=== PATIENT | male | born 1975 | race Caucasian/White ===

== ENCOUNTER 2024-07-24 20:08 | Observation (INO) | payer OTHER, SELFPAY ==
[2024-07-24] VITALS (10 sets, daily range): BP systolic 85–121; BP diastolic 51–75; PULSE 86–105; RESP 20; TEMP 36.7; O2SAT 92–97; BMI 55.4
--- NOTE | 2024-07-24 19:59 | ECG_ITS ---
APPROVED REPORT Exam: Resting ECG HR:96 bpm ECG Measurements Heart Rate 96 AXES NV 137 P 254 QRSd 81 QRS -24 QT 341 T 61 QTc 394 Conclusion JUNCTIONAL RHYTHM BORDERLINE LEFT AXIS DEVIATION [QRS AXIS < -20] LOW QRS VOLTAGE IN PRECORDIAL LEADS [QRS DEFLECTION < 1.0 mV IN CHEST LEADS] No STEMI Electronically signed by : HARMEET CABRERA, 07/25/2024 23:38:04
--- NOTE | 2024-07-24 20:12 | CT_ITS ---
PROCEDURE INFORMATION: Exam: CTA Chest With Contrast Exam date and time: 07/24/2024 10:10 PM Age: 49 years old Clinical indication: Pain; Chest pressure; Additional info: Shock, unknown origin, L shoulder/back pain, n/v TECHNIQUE: Imaging protocol: Computed tomographic angiography of the chest with contrast. Exam focused on the arteries. 3D rendering (Not supervised by radiologist): MIP and/or 3D reconstructed images were created by the technologist. Radiation optimization: All CT scans at this facility use at least one of these dose optimization techniques: automated exposure control; mA and/or kV adjustment per patient size (includes targeted exams where dose is matched to clinical indication); or iterative reconstruction. Contrast material: ISOVUE; Contrast volume: 80 ml; Contrast route: INTRAVENOUS (IV); COMPARISON: CT ABDOMEN PELVIS W CON 07/24/2024 10:10 PM FINDINGS: Pulmonary arteries: No pulmonary embolus. Aorta: Unremarkable. No aortic aneurysm. No aortic dissection. Lungs: Right upper lobe subsegmental atelectasis. Mild hypoventilatory changes. Pleural spaces: Unremarkable. No pneumothorax. No pleural effusion. Heart: Unremarkable. No cardiomegaly. No pericardial effusion. Coronary arteries: Mild coronary artery calcifications. Lymph nodes: Unremarkable. No enlarged lymph nodes. Bones/joints: Unremarkable. No acute fracture. Soft tissues: Unremarkable. IMPRESSION: No pulmonary embolus.
--- NOTE | 2024-07-24 20:12 | CT_ITS ---
PROCEDURE INFORMATION: Exam: CT Abdomen And Pelvis With Contrast Exam date and time: 07/24/2024 10:10 PM Age: 49 years old Clinical indication: Abdominal pain; Additional info: Shock, unknown origin, L shoulder/back pain, n/v TECHNIQUE: Imaging protocol: Computed tomography of the abdomen and pelvis with contrast. 3D rendering (Not supervised by radiologist): MIP and/or 3D reconstructed images were created by the technologist. Radiation optimization: All CT scans at this facility use at least one of these dose optimization techniques: automated exposure control; mA and/or kV adjustment per patient size (includes targeted exams where dose is matched to clinical indication); or iterative reconstruction. Contrast material: ISOVUE; Contrast volume: 80 ml; Contrast route: IV; COMPARISON: CT ANGIO CHEST PE PROTOCOL 07/24/2024 10:10 PM FINDINGS: Liver: Normal. No mass. Gallbladder and biliary ducts: Normal. No calcified stones. No ductal dilation. Pancreas: Normal. No ductal dilation. Spleen: Normal. No splenomegaly. Adrenal glands: Normal. No mass. Kidneys and ureters: Right lower pole simple cortical renal cyst. Left-sided nonobstructive calcified calyceal renal stone. No hydronephrosis. Stomach and bowel: Unremarkable. No obstruction. No mucosal thickening. Appendix: No evidence of appendicitis. Intraperitoneal space: Unremarkable. No free air. No significant fluid collection. Vasculature: Mild atherosclerotic changes of the aorta and its major branches. Lymph nodes: Unremarkable. No enlarged lymph nodes. Urinary bladder: Unremarkable as visualized. Reproductive: Unremarkable as visualized. Bones/joints: Grade 1 retrolisthesis of L5 on S1. Mild multilevel spondylosis. Vacuum phenomenon at L5-S1. Soft tissues: Unremarkable. IMPRESSION: No acute abdominopelvic abnormality. COMMENTS: Consistent with the [employer]'s Incidental Findings Committee white paper (J Am Parker Radiol 2018): Any incidental renal lesion less than 1 cm or classified as too small to characterize, or any incidental cystic renal lesion characterized as simple-appearing, is likely benign. No follow-up imaging is recommended for these lesions per consensus recommendations based on imaging criteria.
[2024-07-24] MEDS: KETOROLAC 30MG/ML VIAL 15 MG IV (20:28)
[2024-07-24] MEDS: SODIUM CHLORIDE 0.9% 10ML VIAL 8 ML IV (20:28)
[2024-07-24] MEDS: ONDANSETRON 4MG/2ML VIAL 4 MG IV (20:28)
[2024-07-24] MEDS: FAMOTIDINE 20MG/2ML VIAL 20 MG IV (20:28)
[2024-07-24] MEDS: ACETAMINOPHEN 1,000MG/100ML VIAL 1000 MG IV (20:28)
[2024-07-24 21:36] LABS: VBG Base Excess -1.6 mmol/L (-2.4-2.3); VBG HCO3 22.6 mmol/L (23-30); VBG Oxygen Saturation 86.7 % (50-70); VBG PCO2 34.1 mmol/L (35-51); VBG PH 7.44 mmol/L (7.31-7.41); VBG Total CO2 23.6 mmol/L (23-27)
[2024-07-24 21:42] LABS: Basophils # 0.1 K/mm3 (0-0.2); Basophils % 0.5 % (0.1-2.0); Eosinophils # 0.5 Kmm3 (0.0-0.4); Eosinophils % 3.9 % (0.1-12.0); Hemoglobin 15.2 g/dL (14.1-18.0); Immature Granulocytes # 0.06 10^3uL; Immature Granulocytes % 0.4 %; Lymphocytes # 2.4 K/mm3 (0.7-4.5); Lymphocytes % 17.5 % (10-50); Mean Corpuscular HGB Conc 35.3 g/dL (31.8-35.4); Mean Corpuscular Hemoglobin 30.9 pg (27.0-31.2); Mean Corpuscular Volume 87.4 fl (80-94); Mean Platelet Volume 10.2 fl (7.4-10.4); Monocytes % 7.1 % (1.7-9.3); Neutrophils # 9.7 K/mm3 (1.8-7.8); Neutrophils % 70.6 % (37.0-80.0); Nucleated Red Blood Cells # 0 10^3/uL; Nucleated Red Blood Cells % 0 %; Platelet Count 268 K/mm3 (142-424); Red Blood Count 4.92 M/mm3 (4.60-6.20); Red Cell Distribution Width 13.4 % (11.5-17.5); Red Cell Distribution Width-SD 42.9 fL; White Blood Count 13.8 K/mm3 (4.8-10.8)
[2024-07-24 21:52] LABS: Albumin Level 4.7 g/dl (3.5-5.0); Chloride 103 mmol/L (98-107); Sodium 136 mmol/L (136-145)
[2024-07-24 21:54] LABS: Activated Partial Thrombo Time 25.4 seconds (22.8-30.6); INR 0.99 (0.9-1.1); Prothrombin Time 11.1 seconds (10.1-12.5)
[2024-07-24 21:55] LABS: Alanine Aminotransferase 46 U/L (12-78); Albumin/Globulin Ratio 1.8 (1.1-1.8); Alkaline Phosphatase 110 U/L (38-126); Aspartate Amino Transferase 35 U/L (17-59); Bilirubin,Total 0.9 mg/dl (0.2-1.3); Blood Urea Nitrogen 28 mg/dl (9-20); Calcium 9.6 mg/dl (8.4-10.2); Carbon Dioxide 24 mmol/L (22.0-30.0); Creatine Kinase 71 U/L (55-170); Creatinine Clearance Estimated 36 mL/min (50-200); Estimated Glomerular Filt Rate 24 ml/min (>60); GFR (African American) 29 ML/MIN (>60); Globulin 2.6 g/dL (1.3-3.2); Glucose 111 mg/dl (74-100); Total Protein,Serum 7.3 g/dl (6.3-8.2)
[2024-07-24] MEDS: LACTATED RINGERS 1000ML 1,000 ML 999 ML IV ×2 (21:55→21:56)
[2024-07-24 21:56] LABS: Lactic Acid 1.9 mmol/L (0.7-2.1); Lipase 81 U/L (23-300)
[2024-07-24 22:01] LABS: C-Reactive Protein 5.6 mg/L (0-4)
[2024-07-24 22:07] LABS: NT Pro Brain Natriuretic Pep. < 20.0 pg/mL (0-125)
[2024-07-24] MEDS: IOPAMIDOL-370 (76%);100ML BOTTLE 80 ML IV (22:10)
[2024-07-24] MEDS: SODIUM CHLORIDE 0.9% 10ML SYR (RAD ONLY) 10 ML IV (22:10)
[2024-07-24] MEDS: 0.9 % SODIUM CHLORIDE 50 ML VIAL IV (22:10)
[2024-07-24 22:18] LABS: Troponin I < 0.01 ng/ml (0.00-0.034)
[2024-07-24 22:28] LABS: Thyroid Stimulating Hormone 1.34 uIU/mL (0.465-4.68)
[2024-07-24 22:29] LABS: Coronavirus 19, PCR Not Detected (NotDetected); Influenza A, PCR Not Detected (NotDetected); Influenza B, PCR Not Detected (NotDetected)
--- NOTE | 2024-07-24 22:30 | ED_ITS ---
Discharge Plan Disposition Patient Disposition: Admitted Condition: Good Clinical Impressions Clinical Impression: JANIE (acute kidney injury), Left shoulder pain, Nausea, Sepsis, Acute UTI Discharge ED Provider: Kaylene Jade General Adult HPI General Chief complaint: Nausea/Vomiting/Diarrhea Stated complaint: nausea Time Seen by Provider: 07/24/24 20:10 Mode of Arrival: EMS Source of Information: Patient and EMS Description of Symptoms (Recalled from ER Triage Doc. by RN): pt to ED with c/o N/V, dizziness, and left shoulder pain that started this morning. History of Present Illness HPI narrative: This patient is a 49-year-old male who has a history of obesity and type 2 diabetes on Ozempic presenting to the emergency department for evaluation with concern for nausea, vomiting, dizziness, and left shoulder pain that started this morning. He notes he was feeling fine yesterday when he went to bed, however this morning anytime he tries to stand up he feels like is going to pass out. He notes he is having pain between his shoulder blades, mostly on the left side. No localizable abdominal pain. He has nausea, vomiting this nonbloody nonbilious. He has had no changes in bowel movements or urinary symptoms. No history of anything like this in the past. No recent falls or traumatic injuries. Related Data Allergies Allergy/AdvReac Type Severity Reaction Status Date / Time No Known Allergies Allergy Verified 07/24/24 20:16 [facility] Disclaimer: The information contained in this section may have been updated after the patient was seen, as this information can be updated by other users. Social History Smoking Status: Never smoker alcohol intake: never current occupational status: employed Travel in the last 8 weeks?: None ROS Obtained: Yes All systems reviewed & no additional complaints except as documented Physical Exam General General appearance: alert, in no apparent distress and obese Head Head exam: atraumatic and normocephalic Eye Eye exam: Present normal appearance, PERRL and EOMI ENT ENT exam: Present normal exam, normal oropharynx, mucous membranes moist and normal external ear exam Neck Neck exam: Present normal inspection, full ROM and trachea midline; Absent tenderness Chest Chest inspection: Present normal inspection and symmetric chest wall rise; Absent tenderness Respiratory Respiratory exam: Present normal lung sounds bilaterally; Absent respiratory distress, wheezes, stridor or accessory muscle use Cardiovascular Cardiovascular exam: Present regular rate and normal rhythm Abdominal Exam Abdominal exam: Present soft; Absent distention, tenderness or guarding Extremities Exam Extremities exam: Present normal inspection, full ROM and normal capillary refill; Absent tenderness or edema Back Exam Back exam: Present normal inspection and full ROM; Absent tenderness Neurological Exam Neurological exam: Present alert, oriented X3, CN II-XII intact and normal gait; Absent motor sensory deficit Psychiatric Psychiatric exam: Present normal affect and normal mood Skin Skin exam: Present warm and dry Medical Decision Making Medical Records Medical records reviewed: Yes I reviewed the patient's medical records. Screening: Per USPSTF and CDC recommendations, given the prevalence of disease in our region, it is our hospital?s policy to screen for HIV and viral Hepatitis for all patients aged 18 and over and those with ongoing risk factors. Naldo Inquiry Pt receiving controlled substance: No Vital Signs: 07/24/24 20:08 07/24/24 20:42 07/24/24 21:02 Temperature 98.1 F Temperature Source Oral Pulse Rate 105 H 99 H Pulse Rate [Left Radial] 105 H Pulse Rate [Orthostatic Lying Radial] Pulse Rate [Orthostatic Sitting Radial] Pulse Rate [Orthostatic Standing Radial] Respiratory Rate 20 20 20 Blood Pressure 87/52 L 85/51 L Blood Pressure [Orthostatic Lying Right Arm] Blood Pressure [Orthostatic Sitting Right Arm] Blood Pressure [Orthostatic Standing Right Arm] Blood Pressure [Right Arm] 103/51 L Blood Pressure Mean Blood Pressure Mean [Right Arm] 68 Blood Pressure Source Automatic Cuff Automatic Cuff Blood Pressure Source [Right Arm] Automatic Cuff Blood Pressure Position Sitting Sitting Blood Pressure Position [Right Arm] Sitting 02 Sat by Pulse Oximetry 95 96 92 L Oxygen Delivery Method Room Air Room Air Room Air 07/24/24 21:53 07/24/24 22:00 07/24/24 22:30 Temperature Temperature Source Pulse Rate 87 88 88 Pulse Rate [Left Radial] Pulse Rate [Orthostatic Lying Radial] Pulse Rate [Orthostatic Sitting Radial] Pulse Rate [Orthostatic Standing Radial] Respiratory Rate Blood Pressure 100/62 L 99/65 L 114/67 Blood Pressure [Orthostatic Lying Right Arm] Blood Pressure [Orthostatic Sitting Right Arm] Blood Pressure [Orthostatic Standing Right Arm] Blood Pressure [Right Arm] Blood Pressure Mean 72 Blood Pressure Mean [Right Arm] Blood Pressure Source Blood Pressure Source [Right Arm] Blood Pressure Position Blood Pressure Position [Right Arm] 02 Sat by Pulse Oximetry 96 97 97 Oxygen Delivery Method 07/24/24 23:00 07/24/24 23:30 07/24/24 23:50 Temperature Temperature Source Pulse Rate 89 86 Pulse Rate [Left Radial] Pulse Rate [Orthostatic Lying Radial] 87 Pulse Rate [Orthostatic Sitting Radial] 100 H Pulse Rate [Orthostatic Standing Radial] 97 H Respiratory Rate Blood Pressure 104/67 L 89/61 L Blood Pressure [Orthostatic Lying Right Arm] 117/69 Blood Pressure [Orthostatic Sitting Right Arm] 121/72 Blood Pressure [Orthostatic Standing Right Arm] 107/75 L Blood Pressure [Right Arm] Blood Pressure Mean 77 Blood Pressure Mean [Right Arm] Blood Pressure Source Blood Pressure Source [Right Arm] Blood Pressure Position Blood Pressure Position [Right Arm] 02 Sat by Pulse Oximetry 95 96 Oxygen Delivery Method Lab Data Lab results reviewed: Yes I reviewed the patient's lab results. Lab Results 07/24/24 20:12: VBG pH 7.44 H, VBG pCO2 34.1 L, VBG pO2 48.0 H, VBG HCO3 22.6 L, VBG Total CO2 23.6, VBG O2 Saturation 86.7 H, VBG Base Excess -1.6, VBG Lactic Acid 3.0 H 07/24/24 21:33: WBC 13.8 H, RBC 4.92, Hgb 15.2, Hct 43.0, MCV 87.4, MCH 30.9, MCHC 35.3, RDW 13.4, Plt Count 268, MPV 10.2, Neut % (Auto) 70.6, Lymph % (Auto) 17.5, [place] % (Auto) 7.1, Eos % (Auto) 3.9, Baso % (Auto) 0.5, Neut # (Auto) 9.7 H, Lymph # (Auto) 2.4, [place] # (Auto) 1.0, Eos # (Auto) 0.5 H, Baso # (Auto) 0.1, PT 11.1, INR 0.99, APTT 25.4, Sodium 136, Potassium 4.0, Chloride 103, Carbon Dioxide 24, Anion Gap 13.0, BUN 28 H, Creatinine 2.80 H, Estimated Creat Clear 36, Estimated GFR 24 L, Est GFR ( Amer) 29 L, Glucose 111 H, Lactate 1.9, Calcium 9.6, Total Bilirubin 0.9, AST 35, ALT 46, Alkaline Phosphatase 110, Total Creatine Kinase 71, Troponin I < 0.01, C-Reactive Protein 5.6 H, NT-Pro-B Natriuret Pep < 20.0, Total Protein 7.3, Albumin 4.7, Globulin 2.6, Albumin/Globulin Ratio 1.8, Lipase 81, TSH 1.34, Thyroxine (T4) 7.0 07/24/24 22:23: SARS-CoV-2 (PCR) Not detected, Influenza A Untype (PCR) Not detected, Influenza Type B (PCR) Not detected 07/24/24 22:35: Urine Color Yellow, Urine Appearance Clear, Urine pH 6.0, Ur Specific Easley >= 1.030, Urine Protein 1+ A, Urine Glucose (UA) Negative, Urine Ketones Trace, Urine Blood Negative, Urine Nitrate Negative, Urine Bilirubin Negative, Urine Urobilinogen 0.2, Ur Leukocyte Esterase Negative, Urine RBC 5-10, Urine WBC 20-50, Ur Squamous Epith Cells 3-5, Amorphous Sediment 1+, Urine Bacteria 1+, Urine Mucus 3+ 07/24/24 23:01: Troponin I 0.02 07/24/24 21:33 07/24/24 21:33 Orders (Tests/Meds): ED MEDICATIONS Generic Name Dose Route Start Last Admin Trade Name Freq PRN Reason Stop Dose Admin Sodium Chloride 1,000 mls @ 100 mls/hr 07/25/24 01:00 07/25/24 01:04 Sod Chlor 0.9% 1000ml Bag IV 08/24/24 00:59 100 mls/hr .Q10H MARYSOL Administration Ondansetron HCl 4 mg 07/25/24 00:51 07/25/24 01:04 Ondansetron 4mg/2ml Vial IV 08/24/24 00:50 4 mg Q8HP PRN Administration Nausea Sodium Chloride 8 ml 07/24/24 20:20 07/24/24 20:28 Sodium Chloride 0.9% 10ml Vial IV 08/23/24 20:19 8 ml NEEDED PRN Administration dilute pepcid Sodium Chloride 10 ml 07/25/24 00:51 Sodium Chloride 0.9% 10ml Flush Syringe IV 08/24/24 00:50 NEEDED PRN Maintain IV Site Discontinued Medications Generic Name Dose Route Start Last Admin Trade Name Freq PRN Reason Stop Dose Admin Acetaminophen 1,000 mg 07/24/24 20:20 07/24/24 20:28 Acetaminophen 1,000mg/100ml Vial IV 07/24/24 20:21 1,000 mg ONCE ONE Administration Famotidine 20 mg 07/24/24 20:20 07/24/24 20:28 Famotidine 20mg/2ml Vial IV 07/24/24 20:21 20 mg ONCE ONE Administration Lactated Ringer's 1,000 mls @ 999 mls/hr 07/24/24 20:55 07/24/24 21:55 Lactated Ringer's 1000 Ml Bag IV 07/24/24 21:55 999 mls/hr .Q1H1M ONE Administration Lactated Ringer's 1,000 mls @ 999 mls/hr 07/24/24 20:56 07/24/24 21:56 Lactated Ringer's 1000 Ml Bag IV 07/24/24 21:56 999 mls/hr .Q1H1M ONE Administration Iopamidol 80 ml 07/24/24 22:09 07/24/24 22:10 Iopamidol-370 (76%);100ml Bottle IV 07/24/24 22:10 80 ml ONCE ONE Administration Ketorolac Tromethamine 15 mg 07/24/24 20:20 07/24/24 20:28 Ketorolac 30mg/Ml Vial IV 07/24/24 20:21 15 mg ONCE ONE Administration Ondansetron HCl 4 mg 07/24/24 20:20 07/24/24 20:28 Ondansetron 4mg/2ml Vial IV 07/24/24 20:21 4 mg ONCE ONE Administration Sodium Chloride 50 ml 07/24/24 22:09 07/24/24 22:10 0.9 % Sodium Chloride 50 Ml Vial IV 07/24/24 22:10 50 ml ONCE ONE Administration Sodium Chloride 10 ml 07/24/24 22:09 07/24/24 22:10 Sodium Chloride 0.9% 10ml Syr (Rad Only) IV 07/24/24 22:10 10 ml ONCE ONE Administration ORDERS Category Date Time Status CT abdomen pelvis w con Stat Cat Scan 07/24/24 20:[address] angio chest PE protocol Stat Cat Scan 07/24/24 20:12 Completed Activated Partial Thrombo Time Stat Lab 07/24/24 21:33 Completed BNP [NT Pro Brain Natriuretic Pep.] Stat Lab 07/24/24 21:33 Completed C-Reactive Protein Stat Lab 07/24/24 21:33 Completed Complete Blood Count Auto Diff Stat Lab 07/24/24 21:33 Completed Comprehensive Metabolic Panel Stat Lab 07/24/24 21:33 Completed Creatine Kinase Stat Lab 07/24/24 21:33 Completed Lactic Acid Stat Lab 07/24/24 21:33 Completed Lipase Stat Lab 07/24/24 21:33 Completed Prothrombin Time INR Stat Lab 07/24/24 21:33 Completed Rapid PCR Covid and Flu A/B Stat Lab 07/24/24 22:23 Completed T4 (Thyroxine) Stat Lab 07/24/24 21:33 Completed TSH [Thyroid Stimulating Hormone] Stat Lab 07/24/24 21:33 Completed Trop I [Troponin I] Stat Lab 07/24/24 21:33 Completed Troponin I Q3H Lab 07/24/24 23:01 Completed Troponin I Q3H Lab 07/25/24 02:15 Ordered Urinalysis and Microscopic Stat Lab 07/24/24 22:35 Completed Blood Culture Stat Micro 07/24/24 21:33 Received Urine Culture Stat Micro 07/24/24 22:35 Received VBG [Venous Blood Gas] Stat RT 07/24/24 20:12 Completed ECG Data Tracing #1: I reviewed this ECG and interpreted as documented below: Normal sinus rhythm with a ventricular rate of 96 bpm. Borderline left axis deviation. No acute ST changes concerning for STEMI. ECG initial impression date: 07/24/24 ECG initial impression time: 20:04 Medical Decision Narrative: In summary, this patient is a 49-year-old male presenting to the Emergency Department for evaluation of orthostatic presyncope, lightheadedness, nausea, scapular pain. Differential diagnoses considered include but are not limited to PE, orthostatic hypotension, dehydration, JANIE, pyelonephritis, ureterolithiasis, aortic pathology among others. Ruling out the most morbid conditions drove assessment. It should be noted patient's history includes obesity, type 2 diabetes, anxiety/depression which may or may not be at goal therapy. This complicates all aspects of care by increasing patient's risk for morbidity. On initial assessment, patient ill-appearing with hypotension and tachycardia. Maps in the low 50s. Given this, IV fluid resuscitation was initiated immediately with good response. He was given a 2 L bolus which is the equivalent of sepsis bolus based on his ideal body weight. He was not given full sepsis bolus given obesity, as I felt it would be detrimental to the patient. Workup included broad lab evaluation to evaluate for infectious, metabolic, cardiac derangements as well as CTA PE protocol and CT abdomen pelvis with IV contrast. I independently interpreted CT scan prior to the radiologist read and noted no PE or obvious aortic pathology, no obvious obstructive uropathy, no obvious intra-abdominal infection. Please see their read for final interpretation. Labs were obtained that demonstrated mild leukocytosis. Patient has an JANIE with a creatinine of 2.8 with no known history of kidney disease, telling her that his creatinine has been previously normal. He is still making urine. Urine does look infected. On reassessment, patient had great improvement after IV fluids with improved perfusion. he is feeling better and is now normotensive, but is still feeling bad. Given significant JANIE in the setting of UTI, I feel he would benefit from admission for IV fluids and antibiotics. I am concerned for sepsis. I ordered IV Rocephin. Blood cultures were already sent and were pending. I had an interactive discussion with the hospitalist who admitted the patient in stable/improved condition Critical Care Critical Care Time Critical Care Time: Yes Attestation: On 07/24/24, the high probability of a clinically significant, sudden or life threatening deterioration of the following system(s) required my full and direct attention, intervention and personal management. The time I documented below is in addition to time spent performing reported procedures but includes the following listed in this critical care notation. Total Time Total Critical Care Time: 45
[2024-07-24 22:43] LABS: Microscopic, Urine URINE MICROSCOPIC (MICROSCOPIC)
[2024-07-24 22:46] LABS: Appearance,Urine CLEAR (Clear); Blood, Urine Negative (Negative); Color,Urine YELLOW (Yellow); Glucose,Urine (UA) Negative (Negative); Ketones,Urine TRACE (Negative); Leukocyte Esterase,Urine Negative (Negative); Nitrate,Urine Negative (Negative); Protein,Urine 1+ (Negative); Specific Gravity, Urine >= 1.030 (1.005-1.030); Urobilinogen,Urine 0.2 EU/dl (0.2)
--- NOTE | 2024-07-24 23:02 | PC.NURSE ---
2nd de león collected and sent to the lab at this time
[2024-07-24 23:10] LABS: Bilirubin,Urine Negative (Negative)
[2024-07-24 23:29] LABS: Amorphous Sediment,Urine 1+ /lpf; Bacteria,Urine 1+ /lpf; Mucus,Urine 3+ /lpf; WBC,Urine 20-50 #/hpf (0-3)
[2024-07-24 23:46] LABS: Troponin I 0.02 ng/ml (0.00-0.034)
[2024-07-25] VITALS (21 sets, daily range): BP systolic 101–141; BP diastolic 30–80; PULSE 68–87; RESP 16–24; TEMP 36.4–37.1; O2SAT 91–99; BMI 55.8
--- NOTE | 2024-07-25 00:32 | PC.NURSE ---
pt ambulatory with slow steady gait to room 1.
[2024-07-25 00:45] LABS: Reflex Lactic Add Lactic Reflex
[2024-07-25] MEDS: 0.9 % SODIUM CHLORIDE 1000ML 1,000 ML 100 ML IV (01:04)
[2024-07-25] MEDS: ONDANSETRON 4MG/2ML VIAL 4 MG IV ×2 (01:04→06:43)
[2024-07-25 01:15] LABS: Lactic Acid Follow Up (RFLX 1) 1.7 mmol/L (0.7-2.1)
--- NOTE | 2024-07-25 01:22 | PC.NURSE ---
provider contacted regarding need for pain medicine.
[2024-07-25] MEDS: CEFTRIAXONE SODIUM 2 GM in 0.9 % SODIUM CHLORIDE 100 ML IV (02:04)
[2024-07-25] MEDS: MORPHINE 2MG/ML SYRINGE 2 MG IV (02:21)
--- NOTE | 2024-07-25 04:28 | P.HP_ITS ---
<Statement entered by Tulio Altamirano MD - 07/25/24 19:30> Rounded on patient after nurse practitioner. Personally examined and interviewed patient. Agree with exam findings and care plan as documented. History of Present Illness *Admission Date: 07/24/24 *Reason for visit:: Dizziness and nausea *History of present illness: This is a 49-year-old male with past medical history of diabetes and obesity on Ozempic who presents emergency department today with complaints of nausea vomiting and dizziness. He reports being on Ozempic for 3 months. States he has had a decrease in oral intake over the last 3 months and states that he woke up today acutely nauseated. States that he has been on the same dosage and has been doing okay with it. Developed sudden onset nausea today after brushing his teeth. Has vomited twice. Also reports pain behind the left shoulder blade. Denies any other symptoms. Denies any fever, cough, congestion. Denies any diarrhea or dysuria. Emergency department workup notable for hypotension with systolic blood pressure in the 80s with improvement after IV fluids. After IV fluid administration Emergency Department he did feel some better but then had a subsequent drop in blood pressure back into the 80s. Lab work is notable for an JANIE with a creatinine of 2.8, leukocytosis with a white count of 13, urinalysis with 20-50 white blood cells, bacteria. He was treated with Rocephin, and IV fluids admitted to the hospital service [facility] Disclaimer: The information contained in this section may have been updated after the patient was seen, as this information can be updated by other users. Social History (Updated 07/25/24 @ 01:20 by Kaylene Jade DO) Smoking Status: Never smoker alcohol intake: never current occupational status: employed Travel in the last 8 weeks?: None Have you lived/traveled outside [place] in past 30 days?: No Contact w/someone who lives/traveled outside US past 30 days?: No Exposure to someone with infectious disease in past 14 days?: No Do you have a fever (greater than 100.4 F or 38 C)?: No Have you tested positive for COVID-19?: No Exposed to someone with COVID-19 in past 14 days?: No Do you have a sore throat?: No Do you have a cough?: No Do you have any weakness?: No Do you have any diarrhea?: No Are you experiencing any unusual bleeding?: No Do you have any muscle aches/pain?: No Do you have any abdominal pain?: No Are you experiencing loss of taste or smell?: No Review of Systems Review of Systems Review of systems:: pertinent systems reviewed and negative unless documented below Review of systems (narrative): Negative except for HPI Meds Home Medications and Allergies New Prescriptions to Start Prescriptions: Allergies Allergy/AdvReac Type Severity Reaction Status Date / Time No Known Allergies Allergy Verified 07/24/24 20:16 Exam Data for Last 24 hours Vital signs and Labs for Last 24 Hours: Temp Pulse Resp BP Pulse Ox O2 Del Method 98.1 F 87 20 127/67 96 Room Air 07/25/24 01:07/25/24 01:07/25/24 01:07/25/24 01:07/25/24 01:07/25/24 01:19 Laboratory Results - last 24 hr 07/24/24 20:12: VBG pH 7.44 H, VBG pCO2 34.1 L, VBG pO2 48.0 H, VBG HCO3 22.6 L, VBG Total CO2 23.6, VBG O2 Saturation 86.7 H, VBG Base Excess -1.6, VBG Lactic Acid 3.0 H 07/24/24 21:33: WBC 13.8 H, RBC 4.92, Hgb 15.2, Hct 43.0, MCV 87.4, MCH 30.9, MCHC 35.3, RDW 13.4, Plt Count 268, MPV 10.2, Neut % (Auto) 70.6, Lymph % (Auto) 17.5, [place] % (Auto) 7.1, Eos % (Auto) 3.9, Baso % (Auto) 0.5, Neut # (Auto) 9.7 H, Lymph # (Auto) 2.4, [place] # (Auto) 1.0, Eos # (Auto) 0.5 H, Baso # (Auto) 0.1, PT 11.1, INR 0.99, APTT 25.4, Sodium 136, Potassium 4.0, Chloride 103, Carbon Dioxide 24, Anion Gap 13.0, BUN 28 H, Creatinine 2.80 H, Estimated Creat Clear 36, Estimated GFR 24 L, Est GFR ( Amer) 29 L, Glucose 111 H, Lactate 1.9, Calcium 9.6, Total Bilirubin 0.9, AST 35, ALT 46, Alkaline Phosphatase 110, Total Creatine Kinase 71, Troponin I < 0.01, C-Reactive Protein 5.6 H, NT-Pro-B Natriuret Pep < 20.0, Total Protein 7.3, Albumin 4.7, Globulin 2.6, Albumin/Globulin Ratio 1.8, Lipase 81, TSH 1.34, Thyroxine (T4) 7.0 07/24/24 22:23: SARS-CoV-2 (PCR) Not detected, Influenza A Untype (PCR) Not detected, Influenza Type B (PCR) Not detected 07/24/24 22:35: Urine Color Yellow, Urine Appearance Clear, Urine pH 6.0, Ur Specific [place] >= 1.030, Urine Protein 1+ A, Urine Glucose (UA) Negative, Urine Ketones Trace, Urine Blood Negative, Urine Nitrate Negative, Urine Bilirubin Negative, Urine Urobilinogen 0.2, Ur Leukocyte Esterase Negative, Urine RBC 5-10, Urine WBC 20-50, Ur Squamous Epith Cells 3-5, Amorphous Sediment 1+, Urine Bacteria 1+, Urine Mucus 3+ 07/24/24 23:01: Troponin I 0.02 07/25/24 00:54: Lactate 1.7 I & O for Last 24 hours: Intake & Output 07/22/24 07/23/24 07/24/24 07/25/24 23:59 23:59 23:59 23:59 Weight 190.509 kg Constitutional Constitutional: no acute distress *Routine HEENT Exam Head: Present normocephalic Eye: Present EOMI and PERRL ENT: Present mucous membranes moist *Routine Neck Exam Neck: Present supple; Absent lymphadenopathy *Routine Respiratory Exam Respiratory: Present CTA bilaterally *Routine Cardiovascular Exam Cardiovascular: Present RRR *Routine Abdominal Exam Abdominal: Present soft and normoactive bowel sounds; Absent tenderness *Routine Rectal Exam Rectal:: deferred *Routine Genitalia Exam Genitalia:: deferred *Routine Extremities Exam Extremities: Absent cyanosis, clubbing or edema *Routine Skin Exam Skin: Present warm; Absent rash *Routine Neurological Exam Neurological: Present alert and oriented X3 Assessment and Plan *Assessment and plan (1) Acute UTI: Status: Acute Category: Medical Code(s): N39.0 - Urinary tract infection, site not specified (2) Sepsis: Status: Acute Category: Medical Code(s): A41.9 - Sepsis, unspecified organism (3) Nausea: Status: Acute Category: Medical Code(s): R11.0 - Nausea (4) JANIE (acute kidney injury): Status: Acute Category: Medical Code(s): N17.9 - Acute kidney failure, unspecified (5) Morbid obesity with BMI of 50.0-59.9, adult: Status: Acute Category: Medical Code(s): E66.01 - Morbid (severe) obesity due to excess calories; Z68.43 - Body mass index [BMI] 50.0-59.9, adult (6) SETH (obstructive sleep apnea): Status: Acute Category: Medical Code(s): G47.33 - Obstructive sleep apnea (adult) (pediatric) Plan Admit to medicine # Sepsis Meets criteria for leukocytosis, hypotension and lactic acidosis. Positive urinalysis on exam Blood pressure improved after IV fluid administration Continue Rocephin for positive UA Follow-up urine culture and blood culture #Acute cystitis Urinalysis with white blood cells and bacteria Continue Rocephin Follow-up urine culture #JANIE Likely prerenal in the setting of nausea and poor p.o. intake Creatinine of 2.8 without available baseline Continue maintenance IV fluids #Nausea Continue antiemetics #Morbid obesity Complicates all aspects of care #SETH BiPAP for bedtime and naps
--- NOTE | 2024-07-25 04:35 | EXP.SEPSISRE ---
[facility] Tissue Perfusion Eval Sepsis Re-Evaluation Performed: Yes Date Performed: 07/25/24 Time Performed: 04:35
[2024-07-25 04:48] LABS: Basophils # 0.1 K/mm3 (0-0.2); Basophils % 0.9 % (0.1-2.0); Eosinophils # 0.5 Kmm3 (0.0-0.4); Eosinophils % 5.5 % (0.1-12.0); Hematocrit 40.9 % (42.0-52.0); Hemoglobin 14.4 g/dL (14.1-18.0); Immature Granulocytes # 0.03 10^3uL; Immature Granulocytes % 0.3 %; Lymphocytes # 2.8 K/mm3 (0.7-4.5); Lymphocytes % 28.1 % (10-50); Mean Corpuscular HGB Conc 35.2 g/dL (31.8-35.4); Mean Corpuscular Hemoglobin 31.1 pg (27.0-31.2); Mean Corpuscular Volume 88.3 fl (80-94); Monocytes # 0.8 K/mm3 (0.1-1.0); Monocytes % 8.3 % (1.7-9.3); Neutrophils # 5.6 K/mm3 (1.8-7.8); Neutrophils % 56.9 % (37.0-80.0); Nucleated Red Blood Cells # 0 10^3/uL; Nucleated Red Blood Cells % 0 %; Platelet Count 240 K/mm3 (142-424); Red Blood Count 4.63 M/mm3 (4.60-6.20); Red Cell Distribution Width 13.3 % (11.5-17.5); Red Cell Distribution Width-SD 43.5 fL; White Blood Count 9.8 K/mm3 (4.8-10.8)
[2024-07-25 04:50] LABS: Chloride 103 mmol/L (98-107); Potassium 3.6 mmoL/L (3.5-5.1); Sodium 136 mmol/L (136-145)
[2024-07-25 04:53] LABS: Anion Gap 12.6 mEq/L (5-15); Blood Urea Nitrogen 31 mg/dl (9-20); Carbon Dioxide 24 mmol/L (22.0-30.0); Creatinine Clearance Estimated 34 mL/min (50-200); Estimated Glomerular Filt Rate 23 ml/min (>60); GFR (African American) 28 ML/MIN (>60); Glucose 114 mg/dl (74-100); Magnesium 1.7 mg/dl (1.6-2.3)
[2024-07-25 05:06] LABS: Troponin I < 0.01 ng/ml (0.00-0.034)
[2024-07-25] MEDS: 0.9 % SODIUM CHLORIDE 1000ML 1,000 ML 500 ML IV (06:33)
--- NOTE | 2024-07-25 06:36 | PC.NURSE ---
patient c/o nausea, provider notified.
--- NOTE | 2024-07-25 10:54 | PC.NURSE ---
arrived by w/c from ED
[2024-07-25] MEDS: ACETAMINOPHEN 325MG TAB 650 MG PO (11:47)
[2024-07-25 12:34] LABS: Chloride 103 mmol/L (98-107); Potassium 3.9 mmoL/L (3.5-5.1); Sodium 137 mmol/L (136-145)
[2024-07-25 12:37] LABS: Anion Gap 10.9 mEq/L (5-15); Blood Urea Nitrogen 25 mg/dl (9-20); Carbon Dioxide 27 mmol/L (22.0-30.0); Creatinine Clearance Estimated 42 mL/min (50-200); Estimated Glomerular Filt Rate 29 ml/min (>60); GFR (African American) 35 ML/MIN (>60)
[2024-07-25 12:38] LABS: Calcium 9.3 mg/dl (8.4-10.2); Glucose 116 mg/dl (74-100)
[2024-07-25] MEDS: PANTOPRAZOLE 40MG TABLET 40 MG PO (20:32)
[2024-07-25] MEDS: buPROPion HCl SR 150MG TAB 150 MG PO (20:32)
[2024-07-25] MEDS: TRAZODONE 50MG TABLET 150 MG PO (20:32)
[2024-07-25] MEDS: ATORVASTATIN 20MG TABLET 20 MG PO (20:32)
[2024-07-25] MEDS: APAP/HYDROCODONE 325MG/7.5MG TAB 1 TAB PO (21:00)
--- NOTE | 2024-07-25 21:48 | P.PN_ITS ---
Subjective *Date: 07/25/24 *Time: 21:48 Interval history: Patient feeling better this morning. Showing improvement to antibiotics. Blood pressure remained stable. No nausea or vomiting. Culture still pending. Medical Exam Vital signs and Labs for Last 24 Hours: Vital Signs Temp Pulse Pulse Pulse Pulse Pulse Resp 07/25/24 21:00 07/25/24 19:50 97.6 F 73 18 07/25/24 19:00 07/25/24 17:00 07/25/24 14:42 07/25/24 13:00 07/25/24 11:00 07/25/24 10:42 98.7 F 74 20 07/25/24 10:01 79 18 07/25/24 09:30 75 17 07/25/24 09:01 74 18 07/25/24 08:30 74 19 07/25/24 08:01 74 16 07/25/24 07:30 72 24 07/25/24 07:01 84 16 07/25/24 06:30 74 17 07/25/24 06:00 73 21 07/25/24 05:30 68 22 07/25/24 05:00 70 24 07/25/24 04:30 71 07/25/24 04:00 71 07/25/24 03:30 73 07/25/24 02:00 97.6 F 75 16 07/25/24 01:19 98.1 F 87 20 07/25/24 01:10 07/25/24 00:56 07/25/24 00:00 87 07/24/24 23:50 87 100 H 97 H 07/24/24 23:46 96 H 07/24/24 23:30 86 07/24/24 23:00 89 07/24/24 22:30 88 07/24/24 22:00 88 07/24/24 21:53 87 BP BP BP BP BP Pulse Ox O2 Del Method 07/25/24 21:00 Room Air 07/25/24 19:50 107/55 L 95 Room Air 07/25/24 19:00 Room Air 07/25/24 17:00 Room Air 07/25/24 14:42 Room Air 07/25/24 13:00 Room Air 07/25/24 11:00 Room Air 07/25/24 10:42 141/30 H Room Air 07/25/24 10:01 101/56 L 99 07/25/24 09:30 130/75 92 L 07/25/24 09:01 129/76 93 L 07/25/24 08:30 124/78 94 L Room Air 07/25/24 08:01 105/52 L 97 Room Air 07/25/24 07:30 118/74 99 Room Air 07/25/24 07:01 107/51 L 96 Room Air 07/25/24 06:30 121/61 94 L 07/25/24 06:00 113/69 96 07/25/24 05:30 110/67 93 L Room Air 07/25/24 05:00 121/74 93 L Room Air 07/25/24 04:30 109/72 L 91 L 07/25/24 04:00 118/69 93 L 07/25/24 03:30 110/64 93 L 07/25/24 02:00 141/80 H 97 Room Air 07/25/24 01:19 127/67 96 Room Air 07/25/24 01:10 07/25/24 00:56 Room Air 07/25/24 00:00 127/67 96 07/24/24 23:50 117/69 121/72 107/75 L 07/24/24 23:46 121/72 97 07/24/24 23:30 89/61 L 96 07/24/24 23:00 104/67 L 95 07/24/24 22:30 114/67 97 07/24/24 22:00 99/65 L 97 07/24/24 21:53 100/62 L 96 FiO2 07/25/24 21:00 07/25/24 19:50 07/25/24 19:00 07/25/24 17:00 07/25/24 14:42 07/25/24 13:00 07/25/24 11:00 07/25/24 10:42 07/25/24 10:01 07/25/24 09:30 07/25/24 09:01 07/25/24 08:30 07/25/24 08:01 07/25/24 07:30 07/25/24 07:01 07/25/24 06:30 07/25/24 06:00 07/25/24 05:30 07/25/24 05:00 07/25/24 04:30 07/25/24 04:00 07/25/24 03:30 07/25/24 02:00 07/25/24 01:19 07/25/24 01:10 21 07/25/24 00:56 07/25/24 00:00 07/24/24 23:50 07/24/24 23:46 07/24/24 23:30 07/24/24 23:00 07/24/24 22:30 07/24/24 22:00 07/24/24 21:53 Intake and Output 07/25/24 07/25/24 07/25/24 07:59 15:59 23:59 Intake Total 160 / 620 460 / 620 Output Total 800 / 1300 500 / 1300 Balance -800 / -680 -340 / -680 460 / -680 Intake: Intake, Oral Amount 160 / 620 460 / 620 Output: Output, Urine Amount 800 / 1300 500 / 1300 Other: Weight 192.068 kg Patient Weight 07/25/24 23:59 Weight 192.068 kg Laboratory Results - last 24 hr 07/24/24 21:33: WBC 13.8 H, RBC 4.92, Hgb 15.2, Hct 43.0, MCV 87.4, MCH 30.9, MCHC 35.3, RDW 13.4, Plt Count 268, MPV 10.2, Neut % (Auto) 70.6, Lymph % (Auto) 17.5, [place] % (Auto) 7.1, Eos % (Auto) 3.9, Baso % (Auto) 0.5, Neut # (Auto) 9.7 H, Lymph # (Auto) 2.4, [place] # (Auto) 1.0, Eos # (Auto) 0.5 H, Baso # (Auto) 0.1, PT 11.1, INR 0.99, APTT 25.4, Sodium 136, Potassium 4.0, Chloride 103, Carbon Dioxide 24, Anion Gap 13.0, BUN 28 H, Creatinine 2.80 H, Estimated Creat Clear 36, Estimated GFR 24 L, Est GFR ( Amer) 29 L, Glucose 111 H, Lactate 1.9, Calcium 9.6, Total Bilirubin 0.9, AST 35, ALT 46, Alkaline Phosphatase 110, Total Creatine Kinase 71, Troponin I < 0.01, C-Reactive Protein 5.6 H, NT-Pro-B Natriuret Pep < 20.0, Total Protein 7.3, Albumin 4.7, Globulin 2.6, Albumin/Globulin Ratio 1.8, Lipase 81, TSH 1.34, Thyroxine (T4) 7.0 07/24/24 22:23: SARS-CoV-2 (PCR) Not detected, Influenza A Untype (PCR) Not detected, Influenza Type B (PCR) Not detected 07/24/24 22:35: Urine Color Yellow, Urine Appearance Clear, Urine pH 6.0, Ur Specific [place] >= 1.030, Urine Protein 1+ A, Urine Glucose (UA) Negative, Urine Ketones Trace, Urine Blood Negative, Urine Nitrate Negative, Urine Bilirubin Negative, Urine Urobilinogen 0.2, Ur Leukocyte Esterase Negative, Urine RBC 5-10, Urine WBC 20-50, Ur Squamous Epith Cells 3-5, Amorphous Sediment 1+, Urine Bacteria 1+, Urine Mucus 3+ 07/24/24 23:01: Troponin I 0.02 07/25/24 00:54: Lactate 1.7 07/25/24 04:39: WBC 9.8 D, RBC 4.63, Hgb 14.4, Hct 40.9 L, MCV 88.3, MCH 31.1, MCHC 35.2, RDW 13.3, Plt Count 240, MPV 10.0, Neut % (Auto) 56.9, Lymph % (Auto) 28.1, [place] % (Auto) 8.3, Eos % (Auto) 5.5, Baso % (Auto) 0.9, Neut # (Auto) 5.6, Lymph # (Auto) 2.8, [place] # (Auto) 0.8, Eos # (Auto) 0.5 H, Baso # (Auto) 0.1, Sodium 136, Potassium 3.6, Chloride 103, Carbon Dioxide 24, Anion Gap 12.6, BUN 31 H, Creatinine 2.90 H, Estimated Creat Clear 34, Estimated GFR 23 L, Est GFR ( Amer) 28 L, Glucose 114 H, Calcium 9.0, Magnesium 1.7, Troponin I < 0.01 07/25/24 12:16: Sodium 137, Potassium 3.9, Chloride 103, Carbon Dioxide 27, Anion Gap 10.9, BUN 25 H, Creatinine 2.40 H, Estimated Creat Clear 42, Estimated GFR 29 L, Est GFR ( Amer) 35 L D, Glucose 116 H, Calcium 9.3 I & O for Labs for Last 24 Hours: Intake & Output 07/22/24 07/23/24 07/24/24 07/25/24 23:59 23:59 23:59 23:59 Intake Total 620 / 620 Output Total 1300 / 1300 Balance -680 / -680 Weight 190.509 kg 192.068 kg Microbiology Reports for the Last 24 Hours: Microbiology 07/24/24 21:33 Blood Blood Culture - Preliminary NO GROWTH AFTER 24 HOURS 07/24/24 21:33 Blood Blood Culture - Preliminary NO GROWTH AFTER 24 HOURS Constitutional: Present no acute distress, morbidly obese and cooperative Head: Present atraumatic and normocephalic Respiratory: Present CTA bilaterally; Absent rhonchi or wheezes Cardiac: Present Reg Rate and Rhythm GI: Present soft; Absent distention or tenderness Neuro: Present Grossly Intact, alert, awake and oriented x 3 Assessment and Plan *Assessment and plan (1) Acute UTI: Status: Acute Category: Medical Code(s): N39.0 - Urinary tract infection, site not specified (2) Sepsis: Status: Acute Category: Medical Code(s): A41.9 - Sepsis, unspecified organism (3) Nausea: Status: Acute Category: Medical Code(s): R11.0 - Nausea (4) JANIE (acute kidney injury): Status: Acute Category: Medical Code(s): N17.9 - Acute kidney failure, unspecified (5) Morbid obesity with BMI of 50.0-59.9, adult: Status: Acute Category: Medical Code(s): E66.01 - Morbid (severe) obesity due to excess calories; Z68.43 - Body mass index [BMI] 50.0-59.9, adult (6) SETH (obstructive sleep apnea): Status: Acute Category: Medical Code(s): G47.33 - Obstructive sleep apnea (adult) (pediatric) Plan 49-year-old male with morbid obesity who presented with criteria for sepsis. Found to have UTI. Culture still pending. Continues to necessitate inpatient management. Problems addressed as follows: # Sepsis # Urinary tract infection Meets criteria with leukocytosis, hypotension and lactic acidosis. Positive urinalysis on exam Blood pressure improved after IV fluid administration Continue Rocephin IV daily Urine and blood cultures pending. White count improved to 9.8, hemoglobin 14.4. Kidney function showing slight improvement with BUN 25, creatinine 2.4. Repeat CBC, CMP, magnesium ordered for the #JANIE Likely prerenal in the setting of nausea and poor p.o. intake Creatinine of 2.8 without available baseline on presentation, improved to 2.4 on morning labs Tolerating p.o. intake, discontinue IV fluids. #Morbid obesity: Complicates all aspects of care #SETH: BiPAP for bedtime and naps Full code
[2024-07-26] VITALS: BP 122/76; PULSE 68; RESP 18; TEMP 36.4; O2SAT 93
[2024-07-26] MEDS: CEFTRIAXONE SODIUM 2 GM in 0.9 % SODIUM CHLORIDE 100 ML IV (02:55)
--- NOTE | 2024-07-26 03:25 | PC.NURSE ---
Patient is alert and oriented x4. He was observed to have eyes closed, respirations even and unlabored, and no apparent distress throughout the night. Patient's personal CPAP machine has been in place during resting periods; he has been tolerating room air, with oxygen saturations > 90%, while awake. [place] was given per MAY for a complaint of severe lower back pain. Other scheduled medications were administered as appropriately per MAY. Auscultation of his heart, lungs, and bowels were within normal findings. Normal saline infusion was discontinued during the previous shift. Patient ambulates independently in his room/to the bathroom without any difficulties. At this time, the patient is resting in bed without any further complaints. No acute changes noted thus far. Call light within reach.
[2024-07-26 04:00] VITALS: BP 104/67; PULSE 61; RESP 17; TEMP 36.1; BMI 55.8
[2024-07-26 07:27] LABS: Basophils # 0.1 K/mm3 (0-0.2); Basophils % 0.9 % (0.1-2.0); Eosinophils # 0.5 Kmm3 (0.0-0.4); Eosinophils % 6.1 % (0.1-12.0); Hemoglobin 14.4 g/dL (14.1-18.0); Immature Granulocytes # 0.02 10^3uL; Immature Granulocytes % 0.2 %; Lymphocytes # 1.8 K/mm3 (0.7-4.5); Lymphocytes % 22.8 % (10-50); Mean Corpuscular HGB Conc 35.1 g/dL (31.8-35.4); Mean Corpuscular Hemoglobin 30.9 pg (27.0-31.2); Mean Platelet Volume 10.2 fl (7.4-10.4); Monocytes # 0.6 K/mm3 (0.1-1.0); Monocytes % 7.7 % (1.7-9.3); Neutrophils % 62.3 % (37.0-80.0); Nucleated Red Blood Cells # 0 10^3/uL; Nucleated Red Blood Cells % 0 %; Platelet Count 236 K/mm3 (142-424); Red Blood Count 4.66 M/mm3 (4.60-6.20); Red Cell Distribution Width 13.4 % (11.5-17.5); Red Cell Distribution Width-SD 42.9 fL; White Blood Count 8.1 K/mm3 (4.8-10.8)
[2024-07-26 07:39] LABS: Alanine Aminotransferase 40 U/L (12-78); Albumin Level 4.2 g/dl (3.5-5.0); Albumin/Globulin Ratio 1.7 (1.1-1.8); Alkaline Phosphatase 109 U/L (38-126); Anion Gap 11.6 mEq/L (5-15); Aspartate Amino Transferase 33 U/L (17-59); Bilirubin,Total 0.7 mg/dl (0.2-1.3); Blood Urea Nitrogen 16 mg/dl (9-20); Calcium 9.1 mg/dl (8.4-10.2); Carbon Dioxide 24 mmol/L (22.0-30.0); Chloride 104 mmol/L (98-107); Creatinine Clearance Estimated 81 mL/min (50-200); Estimated Glomerular Filt Rate 64 ml/min (>60); GFR (African American) 78 ML/MIN (>60); Globulin 2.5 g/dL (1.3-3.2); Glucose 112 mg/dl (74-100); Potassium 3.6 mmoL/L (3.5-5.1); Sodium 136 mmol/L (136-145); Total Protein,Serum 6.7 g/dl (6.3-8.2)
[2024-07-26 08:00] VITALS: BP 116/60; PULSE 64; RESP 17; TEMP 36.3; O2SAT 93
--- NOTE | 2024-07-26 08:13 | P.DS_ITS ---
General Admission date:: 07/25/24 Discharge date: 07/26/24 HPI HPI HPI: This is a 49-year-old male with past medical history of diabetes and obesity on Ozempic who presents emergency department today with complaints of nausea vomiting and dizziness. He reports being on Ozempic for 3 months. States he has had a decrease in oral intake over the last 3 months and states that he woke up today acutely nauseated. States that he has been on the same dosage and has been doing okay with it. Developed sudden onset nausea today after brushing his teeth. Has vomited twice. Also reports pain behind the left shoulder blade. Denies any other symptoms. Denies any fever, cough, congestion. Denies any diarrhea or dysuria. Emergency department workup notable for hypotension with systolic blood pressure in the 80s with improvement after IV fluids. After IV fluid administration Emergency Department he did feel some better but then had a subsequent drop in blood pressure back into the 80s. Lab work is notable for an JANIE with a creatinine of 2.8, leukocytosis with a white count of 13, urinalysis with 20-50 white blood cells, bacteria. He was treated with Rocephin, and IV fluids admitted to the hospital service Hospital Course Hospital Course Hospital Course: 49-year-old male with morbid obesity who presented with criteria for sepsis. Found to have UTI. Culture still being. Transition to oral Levaquin to complete antibiotic course. Kidney function normal and symptoms defervesced. Overall doing well with resolution of sepsis symptoms. Stable to discharge home to complete antibiotics as an outpatient. Problems addressed as follows: Culture still pending. Continues to necessitate inpatient management. Problems addressed as follows: # Sepsis # Urinary tract infection # JANIE Meets criteria with leukocytosis, hypotension and lactic acidosis. Positive urinalysis on exam. Blood pressure improved after IV fluid administration. Initiated on Rocephin IV daily. Urine and blood cultures obtained. Blood cultures remain negative at discharge. Urine culture still pending. White count improved to 8.1 by day of discharge, hemoglobin 14.4. Kidney function normalized from significant kidney injury with creatinine 2.8 on presentation, to creatinine 1.2 by day of discharge and BUN of 16. Consistent with prerenal kidney injury. Tolerating p.o. intake. Transitioned antibiotics to levofloxacin to complete 5 more days of 500 mg daily for total 7 days of antibiotics. #Morbid obesity: Complicates all aspects of care #SETH: BiPAP for bedtime and naps Exam Data for Last 24 hours Vital signs and Labs for Last 24 Hours: Temp Pulse Resp BP Pulse Ox O2 Del Method FiO2 97.0 F L 61 17 104/67 L 93 L CPAP 21 07/26/24 04:00 07/26/24 04:00 07/26/24 04:00 07/26/24 04:00 07/26/24 00:00 07/26/24 06:35 07/25/24 01:10 Laboratory Results - last 24 hr 07/25/24 12:16: Sodium 137, Potassium 3.9, Chloride 103, Carbon Dioxide 27, Anion Gap 10.9, BUN 25 H, Creatinine 2.40 H, Estimated Creat Clear 42, Estimated GFR 29 L, Est GFR ( Amer) 35 L D, Glucose 116 H, Calcium 9.3 07/26/24 07:05: WBC 8.1, RBC 4.66, Hgb 14.4, Hct 41.0 L, MCV 88.0, MCH 30.9, MCHC 35.1, RDW 13.4, Plt Count 236, MPV 10.2, Neut % (Auto) 62.3, Lymph % (Auto) 22.8, [place] % (Auto) 7.7, Eos % (Auto) 6.1, Baso % (Auto) 0.9, Neut # (Auto) 5.0, Lymph # (Auto) 1.8, [place] # (Auto) 0.6, Eos # (Auto) 0.5 H, Baso # (Auto) 0.1, Sodium 136, Potassium 3.6, Chloride 104, Carbon Dioxide 24, Anion Gap 11.6, BUN 16 D, Creatinine 1.20 D, Estimated Creat Clear 81, Estimated GFR 64, Est GFR ( Amer) 78 D, Glucose 112 H, Calcium 9.1, Magnesium 2.0 D, Total Bilirubin 0.7, AST 33, ALT 40, Alkaline Phosphatase 109, Total Protein 6.7, Albumin 4.2 D, Globulin 2.5, Albumin/Globulin Ratio 1.7 I & O for Last 24 hours: Intake & Output 07/23/24 07/24/24 07/25/24 07/26/24 23:59 23:59 23:59 23:59 Intake Total 620 / 1970 1350 / 1350 Output Total 1300 / 1300 0 / 0 Balance -680 / 670 1350 / 1350 Weight 190.509 kg 192.068 kg 191.098 kg Microbiology Reports for the Last 24 Hours: Microbiology 07/24/24 22:35 Urine,Clean Catch Urine Culture - Final Multiple organisms, suggests contamination. 07/24/24 21:33 Blood Blood Culture - Preliminary NO GROWTH AFTER 24 HOURS 07/24/24 21:33 Blood Blood Culture - Preliminary NO GROWTH AFTER 24 HOURS Constitutional Constitutional: no acute distress, morbidly obese and cooperative *Routine HEENT Exam Head: Present normocephalic Eye: Present EOMI and PERRL ENT: Present mucous membranes moist *Routine Neck Exam Neck: Present supple; Absent lymphadenopathy *Routine Respiratory Exam Respiratory: Present CTA bilaterally *Routine Cardiovascular Exam Cardiovascular: Present RRR *Routine Abdominal Exam Abdominal: Present soft and normoactive bowel sounds; Absent tenderness *Routine Extremities Exam Extremities: Absent cyanosis, clubbing or edema *Routine Skin Exam Skin: Present warm; Absent rash *Routine Neurological Exam Neurological: Present alert, oriented X3 and moving all extremities; Absent altered mental status Results Data Completed and Pending Labs on day of discharge: Labs from last 24 hours 07/26/24 07/25/24 07:05 12:16 WBC 8.1 RBC 4.66 Hgb 14.4 Hct 41.0 L MCV 88.0 MCH 30.9 MCHC 35.1 RDW 13.4 Plt Count 236 MPV 10.2 Neut % (Auto) 62.3 Lymph % (Auto) 22.8 [place] % (Auto) 7.7 Eos % (Auto) 6.1 Baso % (Auto) 0.9 Neut # (Auto) 5.0 Lymph # (Auto) 1.8 [place] # (Auto) 0.6 Eos # (Auto) 0.5 H Baso # (Auto) 0.1 Sodium 136 137 Potassium 3.6 3.9 Chloride 104 103 Carbon Dioxide 24 27 Anion Gap 11.6 10.9 BUN 16 D 25 H Creatinine 1.20 D 2.40 H Estimated Creat Clear 81 42 Estimated GFR 64 29 L Est GFR ( Amer) 78 D 35 L D Glucose 112 H 116 H Calcium 9.1 9.3 Magnesium 2.0 D Total Bilirubin 0.7 AST 33 ALT 40 Alkaline Phosphatase 109 Total Protein 6.7 Albumin 4.2 D Globulin 2.5 Albumin/Globulin Ratio 1.7 Preliminary micro results at discharge 07/24/24 21:33 Blood Culture - Preliminary Blood NO GROWTH AFTER 24 HOURS 07/24/24 21:33 Blood Culture - Preliminary Blood NO GROWTH AFTER 24 HOURS DS: Diagnosis Discharge Diagnosis (1) Acute UTI: Status: Acute Code(s): N39.0 - Urinary tract infection, site not specified (2) Sepsis: Status: Resolved Code(s): A41.9 - Sepsis, unspecified organism (3) Nausea: Status: Acute Code(s): R11.0 - Nausea (4) JANIE (acute kidney injury): Status: Acute Code(s): N17.9 - Acute kidney failure, unspecified (5) Morbid obesity with BMI of 50.0-59.9, adult: Status: Acute Code(s): E66.01 - Morbid (severe) obesity due to excess calories; Z68.43 - Body mass index [BMI] 50.0-59.9, adult (6) SETH (obstructive sleep apnea): Status: Acute Code(s): G47.33 - Obstructive sleep apnea (adult) (pediatric) Meds Home Medications and Allergies Home Medications ?Medication ?Instructions ?Recorded ?Confirmed ?Type aripiprazole 10 mg tablet 10 mg PO DAILY 07/25/24 07/25/24 History atorvastatin 20 mg tablet 20 mg PO HS 07/25/24 07/25/24 History bupropion HCl 300 mg 24 hr tablet, 300 mg PO DAILY 07/25/24 07/25/24 History extended release escitalopram oxalate 20 mg tablet 20 mg PO DAILY 07/25/24 07/25/24 History hydrochlorothiazide 25 mg tablet 25 mg PO DAILY 07/25/24 07/25/24 History lisinopril 40 mg tablet 40 mg PO DAILY 07/25/24 07/25/24 History metformin 500 mg tablet 500 mg PO BID 07/25/24 07/25/24 History naltrexone 50 mg tablet 50 mg PO DAILY 07/25/24 07/25/24 History omeprazole 20 mg capsule,delayed 20 mg PO DAILY 07/25/24 07/25/24 History release semaglutide 0.25 mg or 0.5 mg (2 0.5 mg SQ WEEKLY 07/25/24 07/25/24 History mg/3 mL) subcutaneous pen injector (Ozempic) topiramate 50 mg tablet 50 mg PO DAILY 07/25/24 07/25/24 History trazodone 150 mg tablet 150 mg PO HS 07/25/24 07/25/24 History levofloxacin 750 mg tablet 750 mg PO DAILY #5 tabs 07/26/24 Rx New Prescriptions to Start Prescriptions: levofloxacin Tulio Altamirano Allergies Allergy/AdvReac Type Severity Reaction Status Date / Time No Known Allergies Allergy Verified 07/24/24 20:16 Discharge Plan Disposition Patient Disposition: Home, Self-Care Condition: Good Discharge Order Discharge Orders: Discharge Order (Routine); Ordered 07/26/24 Ordered By: Tulio Altamirano Follow up Plan Follow up with: Kaylene Lombardo APRN [Primary Care Provider] - Enter time for follow up (Please call office for follow up appointment.) Prescriptions/Medication Reconciliation: New levofloxacin 750 mg tablet 750 mg PO DAILY Qty: 5 0RF Continued metformin 500 mg tablet 500 mg PO BID atorvastatin 20 mg tablet 20 mg PO HS naltrexone 50 mg tablet 50 mg PO DAILY trazodone 150 mg tablet 150 mg PO HS omeprazole 20 mg capsule,delayed release(DR/EC) 20 mg PO DAILY hydrochlorothiazide 25 mg tablet 25 mg PO DAILY lisinopril 40 mg tablet 40 mg PO DAILY escitalopram oxalate 20 mg tablet 20 mg PO DAILY aripiprazole 10 mg tablet 10 mg PO DAILY bupropion HCl 300 mg tablet extended release 24 hr 300 mg PO DAILY topiramate 50 mg tablet 50 mg PO DAILY Ozempic 0.25 mg or 0.5 mg (2 mg/3 mL) pen injector 0.5 mg SQ WEEKLY Problem Reconciliation Problems Reviewed?: Yes Patient Discharge Instructions ACTIVITY: Continue current activity DIET: continue same diet Patient Instructions: Acute Kidney Injury, DI for Urinary Tract Infection (UTI), DI for Acute Kidney Injury Print Language: Indonesian Providers Primary Care Provider: Kaylene Lombardo Admit Provider: Tulio Altamirano Attending Provider: Tulio Altamirano
[2024-07-26] MEDS: ESCITALOPRAM 20MG TABLET 20 MG PO (08:30)
[2024-07-26] MEDS: TOPIRAMATE 25MG TABLET 50 MG PO (08:30)
[2024-07-26] MEDS: ARIPiprazole 10MG TABLET 10 MG PO (08:30)
[2024-07-26] MEDS: buPROPion HCl SR 150MG TAB 150 MG PO (08:30)
[2024-07-26] MEDS: APAP/HYDROCODONE 325MG/7.5MG TAB 1 TAB PO (08:35)
--- NOTE | 2024-07-28 10:36 | SW/DCPLANNER ---
Spoke with patient on the phone. Patient stated that he is doing good. Patient stated that he hasnt called for schedule his follow up appointment. Patient stated that he was able to get his new medicine picked up from clinic pharmacy. Patient stated that he has no concerns or questions at this time. Abdi Chow
== END 2024-07-26 11:20 | disposition home or self-care (01) ==
LOC: ER 23:52 → 2ND 07-25 10:44
PROVIDERS: Nurse Practitioner Acute Care; Admitting Provider Internal Medicine Adolescent Medicine; Emergency Provider Emergency Medicine; PCP Nurse Practitioner Family; Visit Provider Internal Medicine Adolescent Medicine
DX: N17.9 Acute kidney failure, unspecified (principal); E66.01 Morbid (severe) obesity due to excess calories; Z68.43 Body mass index [BMI] 50.0-59.9, adult; G47.33 Obstructive sleep apnea (adult) (pediatric); E11.9 Type 2 diabetes mellitus without complications; Z79.84 Long term (current) use of oral hypoglycemic drugs; Z79.85 Long-term (current) use of injectable non-insulin antidiabetic drugs; Z79.899 Other long term (current) drug therapy; K21.9 Gastro-esophageal reflux disease without esophagitis; F17.210 Nicotine dependence, cigarettes, uncomplicated; N39.0 Urinary tract infection, site not specified
CPT/HCPCS: 36415; 71275; 74177; 80048; 80053; 81001; 82550; 82803; 83605; 83690; 83735; 83880; 84436; 84443; 84484; 85025; 85610; 85730; 86140; 87040; 87086; 87636; 93005; 94660; 99291; G0378; J0131; J0696; J1885; J2270; J2405; J7030; J7120; Q9967

== ENCOUNTER 2024-10-31 09:47 | Emergency (ER) | payer OTHER, SELFPAY ==
[2024-10-31] VITALS (8 sets, daily range): BP systolic 102–124; BP diastolic 56–68; PULSE 62–80; RESP 8–20; TEMP 36.6–36.8; O2SAT 95–99; BMI 51.4
--- NOTE | 2024-10-31 09:51 | ECG_ITS ---
APPROVED REPORT Exam: Resting ECG HR:81 bpm ECG Measurements Heart Rate 81 AXES SC 142 P 264 QRSd 86 QRS -12 QT 374 T 47 QTc 411 Conclusion ECTOPIC ATRIAL RHYTHM LOW QRS VOLTAGE IN PRECORDIAL LEADS [QRS DEFLECTION < 1.0 mV IN CHEST LEADS] No STEMI Electronically signed by : LETI BIGGS, 11/01/2024 07:47:54
--- OUTSIDE RECORDS SUMMARY | 2024-10-31 09:51 | XMS_ITS | Clinical Summary ---
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 Name Role Phone Unavailable Primary Care Provider Unavailabl e Social History Tobacco Use Types Packs/Day Years Used Date Smoking Tobacco: Never Assessed Sex and Gender Information Value Date Recorded Sex Assigned at Not on file Legal Sex Male 9:33 AM EDT Gender Identity Not on file Sexual Orientation Not on file Plan of Treatment Upcoming Encounters Date Type Department Care Team (Late st Contact Info) Description 02/04/2025 3:00 PM EST Office Visit [facility] [address] [facility] [address] [place] [address] Jerry Suárez MD [address] [place] [address] Health Maintenance Due Date Last Done Comments ANNUAL PHYSICAL 1974 HEPATITIS C SCREENING 1974 TDAP/TD VACCINES (1 - Tdap) 1993 COLOGUARD 05/21/2019 COLON CANCER SCREENING 5 YEAR SIGMOIDOSCOPY 05/21/2019 COLONOSCOPY 05/21/2019 COLORECTAL CANCER SCREENING 05/21/2019 CT COLONOGRAPHY 05/21/2019 FECAL OCCULT BLOOD TEST 05/21/2019 FIT Testing (1 year) 05/21/2019 COVID-19 Vaccine (1 - 2023- season) 2023 Pneumococcal Vaccine 50+ (1 of 1 - PCV) 2024 ZOSTER VACCINE (1 of 2) 2024 INFLUENZA VACCINE 12/10/2024 Insurance [employer] [facility]
--- NOTE | 2024-10-31 10:07 | XR_ITS ---
FINAL REPORT CLINICAL HISTORY: cp/sob FINDINGS: 2 views of the chest were obtained . The heart is normal in size. The mediastinum is within normal limits. The lungs are clear. There is no pneumothorax. Osseous structures are unremarkable. IMPRESSION: No acute cardiopulmonary process. Reviewed, Interpreted and Dictated by Sergo Hilton MD Transcribed by Olga Hall Authenticated and . [facility]
[2024-10-31 10:17] LABS: Hematocrit 42.7 % (42.0-52.0); Hemoglobin 15.2 g/dL (14.1-18.0); Immature Granulocytes % 0.2 %; Mean Corpuscular HGB Conc 35.6 g/dL (31.8-35.4); Mean Corpuscular Hemoglobin 30.6 pg (27.0-31.2); Mean Corpuscular Volume 86.1 fl (80-94); Nucleated Red Blood Cells % 0 %; Platelet Count 269 K/mm3 (142-424); Red Blood Count 4.96 M/mm3 (4.60-6.20); Red Cell Distribution Width-SD 40.2 fL; White Blood Count 9.3 K/mm3 (4.8-10.8)
--- NOTE | 2024-10-31 10:17 | HMH.EDGENADL ---
Discharge Plan Disposition Patient Disposition: Home, Self-Care Condition: Good Prescriptions Prescriptions: No Action metformin 500 mg tablet 500 mg PO BID atorvastatin 20 mg tablet 20 mg PO HS naltrexone 50 mg tablet 50 mg PO DAILY trazodone 150 mg tablet 150 mg PO HS omeprazole 20 mg capsule,delayed release(DR/EC) 20 mg PO DAILY hydrochlorothiazide 25 mg tablet 25 mg PO DAILY lisinopril 40 mg tablet 40 mg PO DAILY escitalopram oxalate 20 mg tablet 20 mg PO DAILY aripiprazole 10 mg tablet 10 mg PO DAILY bupropion HCl 300 mg tablet extended release 24 hr 300 mg PO DAILY topiramate 50 mg tablet 50 mg PO DAILY Ozempic 0.25 mg or 0.5 mg (2 mg/3 mL) pen injector 0.5 mg SQ WEEKLY levofloxacin 750 mg tablet 750 mg PO DAILY Qty: 5 0RF Referrals Follow up/Referrals: Kaylene Lombardo APRN [Primary Care Provider, Medical] - See instructions Activity Restrictions/Add. Instructions Additional Instructions/Restrictions: You were seen in the emergency department with chest pain. Your laboratory and imaging workup was negative. If symptoms worsen, or new symptoms develop, please return to the emergency department. Please follow-up with cardiology at 9 AM Sunday morning. Additionally I encourage you to reach out to your PCP to have lab values rechecked in regards to your chronically elevated kidney labs. Clinical Impressions Clinical Impression: Chest pain, Elevated BUN, Creatinine elevation Instructions Patient Instructions: DI for Chest Pain Print Language Print Language: Belarusian Discharge ED Provider: Akhil Callahan Adult HPI General Chief complaint: Chest Pain Stated complaint: Chest Pain Time Seen by Provider: 10/31/24 09:56 History of Present Illness HPI narrative: This patient is a 49-year-old male with past medical history of coronary artery disease that is never required stenting who presents to the emergency department with brief episode of chest pain. He reports that this morning he developed a sense of pressure and tightness in his chest that is since resolved. He presented to the emergency department due to his concerns surrounding past report of a possible blockage in my coronary artery . The patient is unsure of when he was diagnosed with this, but he does report that he has never had a cardiac catheterization or stent. In the exam room today the patient is hemodynamically stable, comfortable, not tachycardic, not short of breath. He has no chest pain at this time. Related Data Home Medications ?Medication ?Instructions ?Recorded ?Confirmed aripiprazole 10 mg tablet 10 mg PO DAILY 07/25/24 07/25/24 atorvastatin 20 mg tablet 20 mg PO HS 07/25/24 07/25/24 bupropion HCl 300 mg 24 hr tablet, 300 mg PO DAILY 07/25/24 07/25/24 extended release escitalopram oxalate 20 mg tablet 20 mg PO DAILY 07/25/24 07/25/24 hydrochlorothiazide 25 mg tablet 25 mg PO DAILY 07/25/24 07/25/24 lisinopril 40 mg tablet 40 mg PO DAILY 07/25/24 07/25/24 metformin 500 mg tablet 500 mg PO BID 07/25/24 07/25/24 naltrexone 50 mg tablet 50 mg PO DAILY 07/25/24 07/25/24 omeprazole 20 mg capsule,delayed 20 mg PO DAILY 07/25/24 07/25/24 release semaglutide 0.25 mg or 0.5 mg (2 0.5 mg SQ WEEKLY 07/25/24 07/25/24 mg/3 mL) subcutaneous pen injector ([employer]) topiramate 50 mg tablet 50 mg PO DAILY 07/25/24 07/25/24 trazodone 150 mg tablet 150 mg PO HS 07/25/24 07/25/24 Previous Rx's ?Medication ?Instructions ?Recorded levofloxacin 750 mg tablet 750 mg PO DAILY #5 tabs 07/26/24 Allergies Allergy/AdvReac Type Severity Reaction Status Date / Time No Known Allergies Allergy Verified 07/24/24 20:16 [facility] Disclaimer: The information contained in this section may have been updated after the patient was seen, as this information can be updated by other users. Medical History (Updated 10/31/24 @ 12:57 by Akhil Callahan MD) GERD (gastroesophageal reflux disease) SETH (obstructive sleep apnea) DM type 2 (diabetes mellitus, type 2) HLD (hyperlipidemia) HTN (hypertension) Surgical History (Updated 07/25/24 @ 12:00 by Keeley Crowley RN) History of right knee joint replacement Family History (Updated 07/25/24 @ 12:00 by Keeley Crowley RN) Other AAA (abdominal aortic aneurysm) Diabetes Hypertension Social History (Updated 07/25/24 @ 12:01 by Keeley Crowley RN) Smoking Status: Current every day smoker alcohol intake: former current occupational status: employed Travel in the last 8 weeks?: None Have you lived/traveled outside US in past 30 days?: No Contact w/someone who lives/traveled outside US past 30 days?: No Exposure to someone with infectious disease in past 14 days?: No Do you have a fever (greater than 100.4 F or 38 C)?: No Have you tested positive for COVID-19?: No Exposed to someone with COVID-19 in past 14 days?: No Do you have a sore throat?: No Do you have a cough?: No Do you have any weakness?: No Do you have any diarrhea?: No Are you experiencing any unusual bleeding?: No Do you have any muscle aches/pain?: No Do you have any abdominal pain?: No Are you experiencing loss of taste or smell?: No Other Medical History Have you received the Flu Vaccine for this season: No Have you received the Pneumonia Vaccine: No ROS Obtained: Yes All systems reviewed & no additional complaints except as documented Physical Exam General General appearance: alert and in no apparent distress Head Head exam: atraumatic and normocephalic Eye Eye exam: Present normal appearance, PERRL and EOMI ENT ENT exam: Present normal exam and normal external ear exam Neck Neck exam: Present normal inspection, full ROM and trachea midline Chest Chest inspection: Present normal inspection and symmetric chest wall rise; Absent tenderness Respiratory Respiratory exam: Absent respiratory distress Cardiovascular Cardiovascular exam: Present regular rate, normal rhythm and other (appears warm and well perfused) Abdominal Exam Abdominal exam: Absent distention or tenderness exam: Absent deferred Extremities Exam Extremities exam: Present normal inspection and full ROM Neurological Exam Neurological exam: Present alert and oriented X3 Psychiatric Psychiatric exam: Present normal affect Skin Skin exam: Present warm and dry Medical Decision Making Medical Records Medical records reviewed: Yes I reviewed the patient's medical records. Screening: Per USPSTF and CDC recommendations, given the prevalence of disease in our region, it is our hospital?s policy to screen for HIV and viral Hepatitis for all patients aged 18 and over and those with ongoing risk factors. Naldo Inquiry Pt receiving controlled substance: No Naldo was queried for this patient: No Vital Signs: 10/31/24 09:48 10/31/24 10:00 10/31/24 10:30 Temperature 98.2 F Temperature Source Oral Pulse Rate 75 67 Pulse Rate [Right] 80 Respiratory Rate 20 12 11 L Blood Pressure 109/62 L 111/61 Blood Pressure [Right Arm] 103/68 L Blood Pressure Mean [Right Arm] 79 Blood Pressure Source [Right Arm] Automatic Cuff 02 Sat by Pulse Oximetry 98 95 98 Oxygen Delivery Method 10/31/24 11:00 10/31/24 11:30 10/31/24 12:00 Temperature Temperature Source Pulse Rate 73 69 62 Pulse Rate [Right] Respiratory Rate 9 L 8 L 13 Blood Pressure 107/67 L 102/56 L 124/66 Blood Pressure [Right Arm] Blood Pressure Mean [Right Arm] Blood Pressure Source [Right Arm] 02 Sat by Pulse Oximetry 97 99 98 Oxygen Delivery Method Room Air 10/31/24 12:31 10/31/24 12:59 Temperature 98 F Temperature Source Pulse Rate 67 69 Pulse Rate [Right] Respiratory Rate 14 12 Blood Pressure 119/63 119/63 Blood Pressure [Right Arm] Blood Pressure Mean [Right Arm] Blood Pressure Source [Right Arm] 02 Sat by Pulse Oximetry 99 Oxygen Delivery Method Room Air Lab Data Lab results reviewed: Yes I reviewed the patient's lab results. Lab Results 10/31/24 09:54: WBC 9.3, RBC 4.96, Hgb 15.2, Hct 42.7, MCV 86.1, MCH 30.6, MCHC 35.6 H, RDW 12.9, Plt Count 269, MPV 10.3, Neut % (Auto) 64.6, Lymph % (Auto) 19.7, [place] % (Auto) 6.8, Eos % (Auto) 7.8, Baso % (Auto) 0.9, Neut # (Auto) 6.0, Lymph # (Auto) 1.8, [place] # (Auto) 0.6, Eos # (Auto) 0.7 H, Baso # (Auto) 0.1, D-Dimer 0.27, Sodium 139, Potassium 3.9, Chloride 100, Carbon Dioxide 24, Anion Gap 18.9 H, BUN 26 H, Creatinine 2.40 H, Estimated GFR 29 L, Est GFR ( Amer) 35 L, Glucose 100, Calcium 9.8, Total Bilirubin 0.8, AST 33, ALT 33, Alkaline Phosphatase 114, Troponin I < 0.01, NT-Pro-B Natriuret Pep 115, Total Protein 7.9, Albumin 4.9, Globulin 3.0, Albumin/Globulin Ratio 1.6, Lipase 65, HCV Ab MICHELE w/Rflx PCR Qn Negative, HIV Ag/Ab Combo Qual Negative 10/31/24 12:40: Troponin I < 0.01 10/31/24 09:54 10/31/24 09:54 Orders (Tests/Meds): ORDERS Category Date Time Status CXR 2 view (NOT portable) [XR chest 2V] Stat Exams 10/31/24 10:07 Completed BNP [NT Pro Brain Natriuretic Pep.] Stat Lab 10/31/24 09:54 Completed CBC w/Auto Diff [Complete Blood Count Auto Diff] Stat Lab 10/31/24 09:54 Completed CMP [Comprehensive Metabolic Panel] Stat Lab 10/31/24 09:54 Completed D-Dimer Stat Lab 10/31/24 09:54 Completed HIV Combo Stat Lab 10/31/24 09:54 Completed Hepatitis C Ab Qual. W/ RFX Stat Lab 10/31/24 09:54 Completed Lipase Stat Lab 10/31/24 09:54 Completed Troponin I Q3H Lab 10/31/24 09:54 Completed Troponin I Q3H Lab 10/31/24 12:40 Completed HEART Score History (anamnesis): Slightly suspicious ECG: Normal Age: 45-65 years Risk factors: 1-2 risk factors Troponin: </= normal limit HEART Score: 2 Medical Decision Narrative: MDM In summary, this 49-year-old male presents to the emergency department today with episodic chest pain. Initial evaluation the patient is comfortable and hemodynamically stable. Differential diagnosis includes but is not limited to ACS, MT, pulmonary embolism, pneumonia, musculoskeletal pain, GERD, esophageal spasm. Based on these concerns, I ordered a comprehensive laboratory and imaging workup. ECG personally interpreted by me demonstrates normal sinus rhythm. Labs personally reviewed and interpreted demonstrate no leukocytosis, no anemia, no elevation in D-dimer, below detectable levels of troponin x 2, mildly elevated BUN and creatinine which appear to be at baseline, mildly elevated anion gap. X-rays personally interpreted by me demonstrate normal cardiopulmonary silhouette, no concerning findings. Due to the patient's report of some exertional shortness of breath over the last week, and his atypical chest pain, I made the decision to order a D-dimer to rule out pulmonary embolism. This exam was negative and so I did not feel that CT scan of the chest was necessary. Though I could not find documented proof of the patient's report of a partially blocked coronary artery it did raise my clinical concern for ACS. Even though the first troponin was below detectable levels I had the patient wait in the emergency department for 3 hours to draw a second level. This was also below detectable levels. Given this extremely reassuring laboratory workup and the fact that he had no recurrence of symptoms while in the emergency department I felt comfortable discharging him to home. I did schedule close follow-up with our cytogeneticist outpatient. The patient was comfortable with this plan. Additionally I spoke to the patient about his elevated BUN and creatinine. Chart review shows that these lab values have been elevated for the last several months. He does have a history of hypertension, but he is not aware of any problems with his kidneys. I instructed the patient that it was imperative to follow-up with his primary care provider to investigate a possible diagnosis of chronic kidney disease. He verbalized understanding of these findings and felt comfortable discharge to home. Critical Care Critical Care Time Critical Care Time: No
[2024-10-31 10:21] LABS: Alanine Aminotransferase 33 U/L (12-78); Albumin Level 4.9 g/dl (3.5-5.0); Albumin/Globulin Ratio 1.6 (1.1-1.8); Alkaline Phosphatase 114 U/L (38-126); Anion Gap 18.9 mEq/L (5-15); Aspartate Amino Transferase 33 U/L (17-59); Bilirubin,Total 0.8 mg/dl (0.2-1.3); Blood Urea Nitrogen 26 mg/dl (9-20); Calcium 9.8 mg/dl (8.4-10.2); Carbon Dioxide 24 mmol/L (22.0-30.0); Chloride 100 mmol/L (98-107); Creatinine,Serum 2.40 mg/dl (0.66-1.25); Estimated Glomerular Filt Rate 29 ml/min (>60); GFR (African American) 35 ML/MIN (>60); Globulin 3.0 g/dL (1.3-3.2); Glucose 100 mg/dl (74-100); Lipase 65 U/L (23-300); Potassium 3.9 mmoL/L (3.5-5.1); Sodium 139 mmol/L (136-145); Total Protein,Serum 7.9 g/dl (6.3-8.2)
[2024-10-31 10:26] LABS: D-Dimer 0.27 ug/mL (0.0-0.5)
[2024-10-31 10:33] LABS: NT Pro Brain Natriuretic Pep. 115 pg/mL (0-125)
[2024-10-31 10:36] LABS: Troponin I < 0.01 ng/ml (0.00-0.034)
[2024-10-31 13:08] LABS: Troponin I < 0.01 ng/ml (0.00-0.034)
[2024-10-31 13:08] LABS: Hepatitis C Ab Qual. W/ RFX NEGATIVE (Negative)
== END 2024-10-31 13:06 | disposition home or self-care (01) ==
PROVIDERS: Emergency Provider Student in an Organized Health Care Education/Training Program; PCP Nurse Practitioner Family
DX: R07.9 Chest pain, unspecified (principal); R79.89 Other specified abnormal findings of blood chemistry; F17.210 Nicotine dependence, cigarettes, uncomplicated; I10 Essential (primary) hypertension; E78.5 Hyperlipidemia, unspecified
CPT/HCPCS: 71046; 80053; 83690; 83880; 84484; 85025; 85378; 86803; 87389; 93005; 99285

== ENCOUNTER 2024-11-03 13:06 | Outpatient (CLI) | payer OTHER, SELFPAY ==
--- NOTE | 2024-11-03 | CA_ITS ---
APPROVED REPORT Exam: Pharmacologic Technologist: Yenifer Lam Ht: 6 ft 0 in Wt: 388 lbs BSA: 2.82 m2 HR: 74 bpm BP: 121/72 mmHg Stress Test Details Test: Lexiscan HR Resting HR: 74 bpm Max Heart Rate (APMHR): 170.015065 bpm Max HR Achieved: 86 bpm Target HR (85% APMHR): 144.093369 bpm % of APMHR: 50.59 Recovery HR: 81 bpm BP Resting BP: 121.0/72.0 mmHg Max BP: 130.0/74.0 mmHg Recovery BP: 117.0/75.0 mmHg ECG Stress ECG Conclusion Symptoms: Shortness of air Arrhythmias/Ectopy: None ST-T Changes: EKG non-diagnostic, Lexiscan Electronically signed by : Jennifer Borges MD 11/04/2024 00:53:48
--- NOTE | 2024-11-03 13:00 | NM_ITS ---
APPROVED REPORT Exam: Nuclear Stress Test Indication: cad, htn, tob use,family hx., angina, sob, fatigue Patient Location: Outpatient Stress Tech: Yenifer Lam [place] Tech:Kelley Merino JOSEFAAme RT (R)(N)(M) Ht: 6 ft 1 in Wt: 388 lbs HR: 73 bpm BP: 121/72 mmHg BSA: 2.85 m2 TID: 1.44 BMI: 51.1 History: cad, htn, tob use,family hx., angina, sob, fatigue Procedure: Patient received 0.4 mg of intravenous Lexiscan, resting heart rate 73 bpm, resting blood pressure 121/72 mmHg, with Lexiscan maximum heart rate achieved was 87 bpm which is % of the maximum predicted heart rate and blood pressure was 101/65 mmHg. With Lexiscan, patient denied any complaint of chest pain. Cardiac Stress and Resting SPECT Images: Cardiac Stress and Resting SPECT images were obtained using technetium 99m Myoview 29.4 mCi stress and 9.58 mCi at rest. Resting and stress imaging in supine and prone positions demonstrate no evidence of fixed or reversible perfusion defects. There is increase in transient ischemic dilatation ratio (TID 1.44), which may be suggestive of possible multivessel disease or balanced ischemia. Gated imaging demonstrates normal global and regional LV systolic function. LVEF is calculated at 57%. Conclusion: No evidence of fixed or reversible perfusion defects. There is increase in transient ischemic dilatation ratio (TID 1.44), which may be suggestive of possible multivessel disease or balanced ischemia. Gated imaging demonstrates normal global and regional LV systolic function. LVEF is calculated at 57%. Electronically signed by : Jennifer Borges MD 11/04/2024 00:53:38
--- OUTSIDE RECORDS SUMMARY | 2024-11-03 13:10 | XMS_ITS | Clinical Summary ---
Author Organization [facility] yste Address [address] [place] [address] Care Team Providers Care Loans Consultant Name Role Phone Unavailable Primary Care Provider [...] Description 02/04/2025 3:00 PM EST Office Visit [facility] SLEEP MEDICINE [address] [facility] [address] [place] [address] Jerry Suárez MD [address] [place] [address] Health Maintenance Due Date Last Done Comments ANNUAL PHYSICAL 1974 HEPATITIS C SCREENING 1974 TDAP/TD VACCINES (1 - Tdap) 1993 COLOGUARD 05/21/2019 COLON CANCER SCREENING 5 YEAR SIGMOIDOSCOPY 05/21/2019 COLONOSCOPY 05/21/2019 COLORECTAL CANCER SCREENING 05/21/2019 CT COLONOGRAPHY 05/21/2019 FECAL OCCULT BLOOD TEST 05/21/2019 FIT Testing (1 year) 05/21/2019 COVID-19 Vaccine ( - season) 2023 Pneumococcal Vaccine 50+ (1 of 1 - PCV) 2024 ZOSTER VACCINE (1 of 2) 2024 INFLUENZA VACCINE 12/10/2024 Insurance [employer]ETNA [facility]
--- NOTE | 2024-11-03 13:22 | CA_ITS ---
APPROVED REPORT EXAM: Comprehensive 2D, Doppler, and color-flow Echocardiogram Retort Setter: Adeline Mcallister RDCS Ht: 6 ft 1 in Wt: 388lbs BSA: 2.85 BP: 113/71 mmHg Indications: SOA LIMITED IMAGES SECONDARY TO BODY HABITUS 2D Dimensions LVOT 2.39 cm (M/F) 1.5-2.5 M-Mode Dimensions RVDd 2.37 cm (0.9-2.6) LVDd 5.31 cm (3.5-5.7) LVDs 3.82 cm (3.5-5.7) IVSd 0.88 cm (0.6-1.1) PWd 1.08 cm (0.6-1.1) EF (Teich) 53.90% FS 28.10% EDV (Teich) 135.90 mL ESV (Teich) 62.70 mL Left Ventricle The left ventricle is grossly normal in size. Left ventricular systolic function is normal. The left ventricular ejection fraction is within the normal range. There is increased left ventricular wall thickness. Regional wall motion cannot be evaluated in this study due to technically difficult imaging. The left ventricular diastolic function is indeterminate. LVEF is 50-55% Right Ventricle The right ventricle is not well-visualized. Atria The left atrium size is normal. The right atrium is not well-visualized. The interatrial septum is not well-visualized. Aortic Valve The aortic valve is mildly thickened. There is no hemodynamically significant aortic valvular stenosis. No aortic regurgitation is present. Mitral Valve The mitral valve is normal in structure. No evidence of mitral valve stenosis. Trace mitral regurgitation is present. Tricuspid Valve The tricuspid valve is not well-visualized. Pulmonic Valve The pulmonary valve is not well-visualized. Great Vessels The aortic root is not well-visualized. The IVC is not well-visualized. Other Information Study Quality: Technically Difficult Conclusion Technically very difficult study due to poor acoustic windows. Grossly, normal LV systolic function. RV is not well-visualized. No significant valvular stenosis or regurgitation in the visualized valves. The TV and PV are not well visualized. In the setting of technically very difficult study, future TTE evaluations are suggested with administration of ultrasound enhancing agent. Electronically signed by : Jennifer Borges MD 11/04/2024 00:38:54
[2024-11-03] MEDS: ISOTOPE MYOVIEW (PER STUDY) 1 DOSE IV (14:30)
[2024-11-03] MEDS: SODIUM CHLORIDE 0.9% 10ML SYR (RAD ONLY) 10 ML IV ×2 (14:30→14:31)
== END 2024-11-03 23:59 | disposition home or self-care (01) ==
PROVIDERS: PCP Nurse Practitioner Family; Visit Provider Physician Assistant
DX: I25.119 Atherosclerotic heart disease of native coronary artery with unspecified angina pectoris (principal); R06.02 Shortness of breath; R53.83 Other fatigue
CPT/HCPCS: 78452; 93016; 93017; 93018; 93306; A9502; J2785

== ENCOUNTER 2024-11-04 11:51 | Observation (INO) | payer OTHER, SELFPAY ==
[2024-11-04] VITALS (20 sets, daily range): BP systolic 91–126; BP diastolic 37–84; PULSE 64–92; RESP 10–21; TEMP 36.4–36.9; O2SAT 96–100; BMI 51.2
--- NOTE | 2024-11-04 11:57 | ED_ITS ---
<Statement entered by Jose Ayala MD - 11/04/24 16:07> I was consulted by the GARRY, and we discussed the complexity of the problems being addressed. I approve the treatment and management plan for this patient's care in the emergency department, thus performing a substantive portion of the medical decision making. Jose Ayala MD Discharge Plan Disposition Patient Disposition: Admitted Condition: Good Clinical Impressions Clinical Impression: Chest pain at rest Discharge ED Provider: Jose Ayala [facility] General Chief Complaint: Chest Pain Stated Complaint: chest discomfort Time Seen by Provider: 11/04/24 11:53 Mode of Arrival: Ambulatory Source of Information: Patient Limitations: No Limitations History of Present Illness HPI narrative: 49-year-old male presents the emergency department with chest pain that has been ongoing for last 4 to 5 days, worse with exertion, maximal is a 5 out of 10, currently a 3 out of 10, associated with shortness of breath, and lightheadedness/dizziness at times, patient states that he still has some chest pain at rest, located left-sided substernal radiating to neck at times, patient denies any fever or chills, denies any nausea vomiting abdominal pain no constipation or diarrhea no urinary type otology, patient is current every smoker, denies any other alcohol or drug use, distress vitals grossly unremarkable, other past medical history is consistent with hypertension, hyperlipidemia, T2DM, SETH, GERD, anxiety/depression. Of note, patient was recommended by outpatient manager marketing office who patient saw yesterday to present to the emergency department symptoms worsen, for potential heart catheterization, as patient is already had documented stress test showing some coronary artery disease. Please note that above description of symptoms, in this electronic medical record under categorization of recalled from ER triage doctor by RN are reflective of an initial nursing assessment, however, is not reflective of my full history and physical exam that was personally taken and clarified. Consequentially, this preceding description of symptoms, which may include the patient's categorized chief complaint in the EMR, do not reflect my personal clinical impression, and the ultimate description of history of present illness and patient stated complaints should be deferred to this section of the note. Unless stated otherwise or congruent with this section of the note, additional signs, symptoms, or incongruence should be interpreted as inaccurate with my clinical impression. complaint: chest pain indicative of cardiac Treatments prior to or on arrival for Cardiac Chest Pain: other Related Data Home Medications ?Medication ?Instructions ?Recorded ?Confirmed aripiprazole 10 mg tablet 10 mg PO DAILY 07/25/2410/11 atorvastatin 20 mg tablet 20 mg PO HS 07/25/24 5 bupropion HCl 300 mg 24 hr tablet, 300 mg PO DAILY 11/04/24 extended release escitalopram oxalate 20 mg tablet 20 mg PO DAILY 07/2511/04/24 omeprazole 20 mg capsule,delayed 20 mg PO DAILY 11/04/24 release semaglutide 0.25 mg or 0.5 mg (2 0.5 mg SQ WEEKLY 07/1011/04/24 mg/3 mL) subcutaneous pen injector (Ozempic) topiramate 50 mg tablet 50 mg PO BID 07/25/24 trazodone 150 mg tablet 150 mg PO HS 07/25/24 metformin 500 mg tablet,extended 500 mg PO DAILY 11/0411/04/24 release 24 hr nitroglycerin 0.4 mg sublingual 0.4 mg sublingual Q5MI TORPEDOMAN'S MATE PRN chest 11/04/24 11/04/24 tablet pain Previous Rx's ?Medication ?Instructions ?Recorded hydrochlorothiazide 12.5 mg tablet 12.5 mg PO DAILY #3 0 tabs 11/03/24 lisinopril 20 mg tablet 20 mg PO DAILY #30 tabs 10/11 08/03 metoprolol succinate 25 mg 25 mg PO DAILY #30 tabs tablet,extended release 24 hr Allergies Allergy/AdvReac Type Severity Reaction Status Date / Time No Known Allergies Allergy Verified 11/03/24 09:32 [facility] Disclaimer: The information contained in this section may have been updated after the patient was seen, as this information can be updated by other users. Medical History (Updated 11/04/24 @ 14:36 by Cassidy Pal APRN) Coronary artery calcification seen on CT scan SOB (shortness of breath) GERD (gastroesophageal reflux disease) SETH (obstructive sleep apnea) DM type 2 (diabetes mellitus, type 2) HLD (hyperlipidemia) HTN (hypertension) Surgical History History of right knee joint replacement Family History Other AAA (abdominal aortic aneurysm) Diabetes Hypertension Social History Smoking Status: Former smoker alcohol intake: former current occupational status: employed Travel in the last 8 weeks?: None Have you lived/traveled outside US in past 30 days?: No Contact w/someone who lives/traveled outside US past 30 days?: No Exposure to someone with infectious disease in past 14 days?: No Do you have a fever (greater than 100.4 F or 38 C)?: No Have you tested positive for COVID-19?: No Exposed to someone with COVID-19 in past 14 days?: No Do you have a sore throat?: No Do you have a cough?: No Do you have any weakness?: No Do you have any diarrhea?: No Are you experiencing any unusual bleeding?: No Do you have any muscle aches/pain?: No Do you have any abdominal pain?: No Are you experiencing loss of taste or smell?: No Other Medical History Have you received the Flu Vaccine for this season: No Have you received the Pneumonia Vaccine: No ROS Obtained: Yes All systems reviewed & no additional complaints except as documented Physical Exam General General appearance: alert and in no apparent distress Head Head exam: atraumatic and normocephalic Eye Eye exam: Present PERRL and EOMI ENT ENT exam: Present mucous membranes moist Neck Neck exam: Present normal inspection Chest Chest inspection: Present normal inspection and symmetric chest wall rise Respiratory Respiratory exam: Present normal lung sounds bilaterally; Absent respiratory distress, wheezes or stridor Cardiovascular Cardiovascular exam: Present regular rate and normal rhythm Abdominal Exam Abdominal exam: Present soft; Absent tenderness, guarding, rebound or rigidity Extremities Exam Extremities exam: Present normal inspection Neurological Exam Neurological exam: Present alert and oriented X3 Psychiatric Psychiatric exam: Present normal affect Skin Skin exam: Present warm and dry HEART Score HEART Score HEART Score assessment performed?: Yes HEART Score: 4 Critical Care Critical Care Time Critical Care Time: No Medical Decision Making Medical Records Medical records reviewed: Yes I reviewed the patient's medical records. Naldo Inquiry Pt receiving controlled substance: Yes Naldo was queried for this patient: No Reason not queried -: Emergent pt cond-no time Risks and benefits of using a controlled substance: were discussed with pt by me Vital Signs Vital Signs: 11/04/24 12:00 11/04/24 12:31 11/04/24 13:01 Temperature 98.4 F Temperature Source Oral Pulse Rate 71 77 Pulse Rate [Left Radial] 79 Respiratory Rate 19 10 L 17 Blood Pressure 110/60 98/54 L Blood Pressure [Right Arm] 110/77 Blood Pressure Mean [Right Arm] 88 Blood Pressure Source Blood Pressure Position 02 Sat by Pulse Oximetry 98 99 98 Oxygen Delivery Method Room Air 11/04/24 13:30 11/04/24 13:33 11/04/24 14:35 Temperature 98.4 F Temperature Source Oral Pulse Rate 74 73 68 Pulse Rate [Left Radial] Respiratory Rate 21 16 Blood Pressure 112/79 117/71 Blood Pressure [Right Arm] Blood Pressure Mean [Right Arm] Blood Pressure Source Automatic Cuff Blood Pressure Position Sitting 02 Sat by Pulse Oximetry 97 Oxygen Delivery Method Room Air Lab Data Lab results reviewed: Yes I reviewed the patient's lab results. Labs: Lab Results 11/04/24 12:01: WBC 11.1 H, RBC 5.13, Hgb 15.0, Hct 44.8, MCV 87.3, MCH 29.2, MCHC 33.5, RDW 12.8, Plt Count 266, MPV 10.4, Neut % (Auto) 66.0, Lymph % (Auto) 24.1, Stewart % (Auto) 5.2, Eos % (Auto) 3.7, Baso % (Auto) 0.8, Neut # (Auto) 7.3, Lymph # (Auto) 2.7, Stewart # (Auto) 0.6, Eos # (Auto) 0.4, Baso # (Auto) 0.1, Sodium 141, Potassium 3.8, Chloride 103, Carbon Dioxide 26, Anion Gap 15.8 H, B UN 25 H, Creatinine 1.30 H, Estimated Creat Clear 77, Estimated GFR 58 L, Est GFR ( Amer) 71, Glucose 111 H, Calcium 10.1, Magnesium 1.2 L, Total Bilirubin 0.6, AST 27, ALT 24, Alkaline Phosphatase 92, Troponin I < 0.01, N T-Pro-B Natriuret Pep 223 H, Total Protein 7.8, Albumin 4.8, Globulin 3.0, Albumin/Globulin Ratio 1.6, Lipase 87 11/04/24 12:01 11/04/24 12:01 Response Orders (Tests/Meds): ED MEDICATIONS Generic Name Dose Route Start Last Admin Trade Name Freq PRN Reason Stop Dose Admin Acetaminophen 650 mg 11/04/24 14:10 Acetaminophen 325mg Tab PO 12/04/24 14:09 Q4HP PRN Fever or Mild Pain (1-3) Hydrocodone Bitart/Acetaminophen 1 tab 11/04/24 14:10 Hydrocodone/Apap 5/325 Mg Tablet PO 12/04/24 14:09 Q4HP PRN Mild to Moderate Pain (1-6) Diazepam 5 mg 11/04/24 14:35 Diazepam 5mg Tablet PO 11/05/24 02:35 ONCE PRN Anxiety Fentanyl Citrate 50 mcg 11/04/24 14:35 Fentanyl 100mcg/2ml Vial IV 11/05/24 02:35 Q3MINP PRN Sedation Fentanyl Citrate 25 mcg 11/04/24 14:35 Fentanyl 100mcg/2ml Vial IV 11/05/24 02:35 Q3MINP PRN Sedation Flumazenil 0.2 mg 11/04/24 14:35 Flumazenil 0.1mg/Ml 5ml Vial IV 11/05/24 02:35 NEEDED PRN Sedation Heparin Sodium (Porcine) 5,000 unit 11/04/24 14:35 Heparin 1,000 Units/Ml 10ml Vial (Credit Risk Analytics Manager) IV 11/04/24 18:35 NEEDED PRN Emergency Box Senior Estimator Hydralazine HCl 20 mg 11/04/24 14:35 Hydralazine 20mg/Ml Vial IV 11/04/24 18:35 ONCE PRN sbp>160 Adenosine 180 mg/ Sodium 90 mls @ 950.368 mls/hr 11/04/24 14:35 Chloride IV 11/04/24 18:35 ONCE PRN fractional flow reserve 180 MCG/KG/MIN Adenosine 90 mg/ Sodium 90 mls @ 1,900.735 mls/hr 11/04/24 14:35 Chloride IV 11/04/24 18:35 ONCE PRN fractional flow reserve 180 MCG/KG/MIN Sodium Chloride 1,000 mls @ 25 mls/hr 11/04/24 14:45 Sod Chloride 0.9% 500ml Bag IV 11/05/24 14:35 .Q25H MARYSOL Labetalol HCl 20 mg 11/04/24 14:35 Labetalol 20mg/4ml Syringe IV 11/04/24 18:35 ONCE PRN sbp>160 Midazolam HCl 1 mg 11/04/24 14:35 Midazolam 2mg/2ml Vial IV 11/05/24 02:35 Q3MINP PRN Sedation Midazolam HCl 1 mg 11/04/24 14:35 Midazolam Hcl 1mg/Ml 5ml Vial IV 11/05/24 02:35 Q3MINP PRN Sedation Morphine Sulfate 2 mg 11/04/24 14:10 Morphine 2mg/Ml Syringe IV 12/04/24 14:09 Q2HP PRN Severe Pain (7-10) Naloxone HCl 0.4 mg 11/04/24 14:35 Naloxone 0.4mg/Ml Vial IV 11/05/24 02:35 Q5MINP PRN Decreased Respirations Nitroglycerin 800 mcg 11/04/24 14:35 Nitroglycerin 800mcg/8ml Syr (Credit Risk Analytics Manager) IA 11/04/24 18:35 NEEDED PRN Emergency Box Senior Estimator Ondansetron HCl 4 mg 11/04/24 14:10 Ondansetron 4mg/2ml Vial IV 12/04/24 14:09 Q8HP PRN Nausea Ondansetron HCl 4 mg 11/04/24 14:35 Ondansetron 4mg/2ml Vial IV 11/05/24 02:35 NEEDED PRN Nausea Promethazine HCl 25 mg 11/04/24 14:35 Promethazine Hcl 25mg/Ml 1ml Vial IV 11/05/24 02:35 NEEDED PRN Nausea And Vomiting Protamine Sulfate 50 mg 11/04/24 14:35 Protamine Sulfate 50mg/5ml Vial (Credit Risk Analytics Manager) IV 11/04/24 18:35 ONCE PRN act>200 Sodium Chloride 10 ml 11/04/24 14:35 Sodium Chloride 0.9% 10ml Flush Syringe IV 12/04/24 14:34 NEEDED PRN Maintain IV Site Discontinued Medications Generic Name Dose Route Start Last Admin Trade Name Freq PRN Reason Stop Dose Admin Diazepam 5 mg 11/04/24 14:30 Diazepam 5mg Tablet PO 11/05/24 02:30 ONCE PRN Anxiety Diphenhydramine HCl 50 mg 11/04/24 14:30 Diphenhydramine 50mg/Ml Vial IV 11/04/24 14:31 ONCE ONE Diphenhydramine HCl 50 mg 11/04/24 14:35 Diphenhydramine 50mg/Ml Vial IV 11/04/24 14:36 ONCE ONE Heparin Sodium/Sodium Chloride 3,000 unit 11/04/24 14:35 Heparin 1,000 Units/500ml Ns (Credit Risk Analytics Manager) IV 11/04/24 14:36 ONCE ONE Magnesium Sulfate 2 gm in 50 mls @ 50 mls/hr 11/04/24 13:06 11/04/24 14:34 Magnesium Sulfate 2gm/50ml Premix IV 11/04/24 14:05 Infused ONCE ONE Infusion Lidocaine HCl 10 ml 11/04/24 14:35 Lidocaine 1% 10ml Mdv IJ 11/04/24 14:36 ONCE ONE Lidocaine HCl 10 ml 11/04/24 14:35 Lidocaine 1% 5ml Pf Vial IJ 11/04/24 14:36 ONCE ONE Morphine Sulfate 4 mg 11/04/24 12:09 11/04/24 12:17 Morphine 4mg/Ml Syringe IV 11/04/24 12:10 4 mg ONCE ONE Administration Morphine Sulfate 4 mg 11/04/24 14:35 Morphine 4mg/Ml Syringe IV 11/04/24 14:36 ONCE ONE Ondansetron HCl 4 mg 11/04/24 12:10 11/04/24 12:16 Ondansetron 4mg/2ml Vial IV 11/04/24 12:11 4 mg ONCE ONE Administration Verapamil HCl 2.5 mg 11/04/24 14:35 Verapamil 2.5mg/Ml 2ml Vial IV 11/04/24 14:36 ONCE ONE ORDERS Category Date Time Status Cardiology Consult [Consult to Cardiology] [CONS] Cons 11/04/24 14:10 Active Routine XR chest portable Stat Exams 11/04/24 12:09 Completed Complete Blood Count Auto Diff AMLAB Lab 11/05/24 06:00 Ordered Complete Blood Count Auto Diff AMLAB Lab 11/06/24 06:00 Ordered Complete Blood Count Auto Diff Stat Lab 11/04/24 12:01 Completed Comprehensive Metabolic Panel AMLAB Lab 11/05/24 06:00 Ordered Comprehensive Metabolic Panel AMLAB Lab 11/06/24 06:00 Ordered Comprehensive Metabolic Panel Stat Lab 11/04/24 12:01 Completed Lipase Stat Lab 11/04/24 12:01 Completed Magnesium AMLAB Lab 11/05/24 06:00 Ordered Magnesium Stat Lab 11/04/24 12:01 Completed NT Pro Brain Natriuretic Pep. Stat Lab 11/04/24 12:01 Completed Troponin I Stat Lab 11/04/24 12:01 Completed ECG Request NEEDED Y 11/04/24 14:15 Ordered MDM Narrative Medical Decision Narrative: 49-year-old male presents the emergency department with chest pain, worse with exertion, sometimes present at rest for the last 4 to 5 days, differential diagnose include but not limited to, cardiac arrhythmia, electrolyte disturbance, ACS, pneumonia, anxiety reaction, panic attack, GERD, gastritis among others. I discussed this patient's case with attending physician Will obtain basic laboratory studies, lipase level, magnesium level, proBNP, troponin, chest x-ray, EKG, will give 4 mg of morphine for pain and 4 mg of Zofran for nausea. CBCs noted for mild leukocytosis 11.8 otherwise unremarkable CMP is notable for elevated BUN at 25, creatinine elevated at 1.3, proBNP is mildly elevated at 223, hypomagnesia 1.2, replace with 2 g IV magnesium. Troponin is less than 0.01 I reviewed the patient's chest x-ray along the corresponding radiologic report, no acute process on portable exam. I did enter after discussion with on-call gas regulator repairer helper Dr. Pruitt at approximately 2:05 PM, he he recommends admission and scheduled heart catheterization today, patient is already n.p.o. I discussed this patient's case with the hospitalist PHI Nixon, at approximately 2:08 PM, she is agreement the current admission plan/treatment plan for unstable angina heart catheterization today with interventional cardiology. Patient is n.p.o. and remain n.p.o. until heart catheterization.
--- NOTE | 2024-11-04 11:58 | ECG_ITS ---
APPROVED REPORT Exam: Resting ECG HR:73 bpm ECG Measurements Heart Rate 73 AXES PA 144 P 258 QRSd 91 QRS 14 QT 389 T 30 QTc 414 Conclusion ECTOPIC ATRIAL RHYTHM LOW QRS VOLTAGE IN PRECORDIAL LEADS [QRS DEFLECTION < 1.0 mV IN CHEST LEADS] ABNORMAL RHYTHM ECG UNCONFIRMED REPORT Electronically signed by : Marquis Lara MD 11/05/2024 08:43:22
--- OUTSIDE RECORDS SUMMARY | 2024-11-04 11:58 | XMS_ITS | Clinical Summary ---
Author Organization [facility] yste Address [address] [place] [address] Care Team Providers Care Gift Manager Name Role Phone Unavailable Primary Care [...] Description 02/04/2025 3:00 PM EST Office Visit [facility] SLEEP MEDICINE [address] [facility] [address] [place] [address] Jerry Suárez MD [address] [place] [address] Health Maintenance Due Date Last Done Comments [...] 2) 2024 INFLUENZA VACCINE 12/10/2024 Insurance [employer] [facility]
--- NOTE | 2024-11-04 12:09 | XR_ITS ---
FINAL REPORT CLINICAL HISTORY: SOA, chest pain COMPARISON: 10/31/2024 FINDINGS: A portable view of the chest was obtained. Cardiac and mediastinal silhouettes are within normal limits. The lungs are clear. There is no pleural effusion or pneumothorax. IMPRESSION: No acute process on this portable exam. Reviewed, Interpreted and Dictated by Nupur Craig MD Transcribed by Sindi Chan Authenticated and [facility]
[2024-11-04 12:13] LABS: Hematocrit 44.8 % (42.0-52.0); Hemoglobin 15.0 g/dL (14.1-18.0); Immature Granulocytes % 0.2 %; Mean Corpuscular HGB Conc 33.5 g/dL (31.8-35.4); Mean Corpuscular Hemoglobin 29.2 pg (27.0-31.2); Mean Corpuscular Volume 87.3 fl (80-94); Nucleated Red Blood Cells % 0 %; Platelet Count 266 K/mm3 (142-424); Red Blood Count 5.13 M/mm3 (4.60-6.20); Red Cell Distribution Width-SD 40.8 fL; White Blood Count 11.1 K/mm3 (4.8-10.8)
[2024-11-04] MEDS: ONDANSETRON 4MG/2ML VIAL 4 MG IV (12:16)
[2024-11-04] MEDS: MORPHINE 4MG/ML SYRINGE 4 MG IV (12:17)
[2024-11-04 12:23] LABS: Albumin Level 4.8 g/dl (3.5-5.0); Chloride 103 mmol/L (98-107); Sodium 141 mmol/L (136-145)
[2024-11-04 12:24] LABS: Potassium 3.8 mmoL/L (3.5-5.1)
[2024-11-04 12:26] LABS: Alanine Aminotransferase 24 U/L (12-78); Albumin/Globulin Ratio 1.6 (1.1-1.8); Alkaline Phosphatase 92 U/L (38-126); Anion Gap 15.8 mEq/L (5-15); Aspartate Amino Transferase 27 U/L (17-59); Bilirubin,Total 0.6 mg/dl (0.2-1.3); Blood Urea Nitrogen 25 mg/dl (9-20); Calcium 10.1 mg/dl (8.4-10.2); Carbon Dioxide 26 mmol/L (22.0-30.0); Creatinine Clearance Estimated 77 mL/min (50-200); Creatinine,Serum 1.30 mg/dl (0.66-1.25); Estimated Glomerular Filt Rate 58 ml/min (>60); GFR (African American) 71 ML/MIN (>60); Globulin 3.0 g/dL (1.3-3.2); Glucose 111 mg/dl (74-100); Total Protein,Serum 7.8 g/dl (6.3-8.2)
[2024-11-04 12:39] LABS: Lipase 87 U/L (23-300)
[2024-11-04 12:40] LABS: Magnesium 1.2 mg/dl (1.6-2.3)
[2024-11-04 12:52] LABS: NT Pro Brain Natriuretic Pep. 223 pg/mL (0-125)
[2024-11-04 13:28] LABS: Troponin I < 0.01 ng/ml (0.00-0.034)
[2024-11-04] MEDS: MAGNESIUM SULFATE IN WATER 2 GM/50 ML PIGGYBACK IV (13:32)
--- NOTE | 2024-11-04 14:13 | PC.NURSE ---
synthetic department supervisor contacted for a bed
--- NOTE | 2024-11-04 14:31 | IR_ITS ---
APPROVED REPORT Patient Location: Inpatient Resource Director: Rosales Sage, RT (R) PROCEDURES Left heart catheterization Left ventriculogram Selective coronary angiogram INDICATION Unstable angina, Abnormal stress test Informed consent was obtained prior to the procedure. COMPLICATIONS none Estimated Blood Loss: less than 10ml TECHNIQUE One percent lidocaine used to anesthetize the right anterior aspect of the wrist. The right radial artery was accessed via the Seldinger technique. A 6 Belarusian sheath was placed in the right radial artery. 2.5 mg of Verapamil, 800 mcg of nitroglycerin, 1mg Lidocaine and 5000 U Heparin were given through the arterial sheath. The JL3 catheter was also used to perform left heart catheterization, left ventriculogram and selective coronary angiogram. At the end of the procedure the sheath was removed good hemostasis was achieved using Traclet band, patient was transferred to the postop holding area in stable condition. ANGIOGRAPHIC RESULTS The left main artery Normal The left anterior descending artery Has proximal concentric 30% stenosis which extends beyond the first diagonal artery and 10 to 20% in the first diagonal artery The circumflex artery Large dominant 10% luminal regularities The right coronary artery Nondominant 10% luminal regularities The VELAZQUEZ ventriculogram reveals Hyperdynamic 80% The left ventricular end-diastolic pressure 20 mmHg IMPRESSION Mild nonflow limiting coronary artery disease Hyperdynamic ventricle Mildly elevated LVEDP PLAN 1. Evaluation of noncardiac symptoms 2. Treatment of hyperdynamic ventricle 3. Consider sleep study 4. Consider CTA PE gram to evaluate for possible pulmonary embolism Electronically signed by : David Pruitt MD 11/04/2024 15:45:50
--- NOTE | 2024-11-04 14:31 | EXP.CARD.CON ---
History of Present Illness History of Present Illness Consult date: 11/04/24 Requesting physician: Lukas Urena Consult reason: chest pain Chief complaint: chest pain and abnormal stress test History of present illness: Anupam Davis is a 49 year old white male with a significant past medical history for coronary artery disease, hypertension, hyperlipidemia, diabetes mellitus and SETH was sent to ER from cardiology clinic for unstable angina and abnormal stress test. Patient had a Marian SPECT stress test yesterday which showed TID at 1.44 suggested of multivessel coronary artery disease. Patient reports has been having ongoing episodes of intermittent chest pain with activity and rest associated with shortness of breath. EKG today was negative for STEMI. Chest x-ray is negative for acute process. Echo 11/03/2024 shows a grossly normal LV systolic function with no significant valvular stenosis or regurg in the visualized valves. The TV and PV valves are not well-visualized. Creatinine 1.3 today improved from a baseline of 2.4. Serial troponins remain negative. Patient was admitted for unstable angina and to proceed with left heart catheterization today. [facility] Disclaimer: The information contained in this section may have been updated after the patient was seen, as this information can be updated by other users. Medical History (Updated 11/04/24 @ 14:36 by Cassidy Pal APRN) Coronary artery calcification seen on CT scan SOB (shortness of breath) GERD (gastroesophageal reflux disease) SETH (obstructive sleep apnea) DM type 2 (diabetes mellitus, type 2) HLD (hyperlipidemia) HTN (hypertension) Surgical History History of right knee joint replacement Family History Other AAA (abdominal aortic aneurysm) Diabetes Hypertension Social History Smoking Status: Former smoker alcohol intake: former current occupational status: employed Travel in the last 8 weeks?: None Have you lived/traveled outside US in past 30 days?: No Contact w/someone who lives/traveled outside US past 30 days?: No Exposure to someone with infectious disease in past 14 days?: No Do you have a fever (greater than 100.4 F or 38 C)?: No Have you tested positive for COVID-19?: No Exposed to someone with COVID-19 in past 14 days?: No Do you have a sore throat?: No Do you have a cough?: No Do you have any weakness?: No Do you have any diarrhea?: No Are you experiencing any unusual bleeding?: No Do you have any muscle aches/pain?: No Do you have any abdominal pain?: No Are you experiencing loss of taste or smell?: No Review of Systems Review of Systems Review of systems:: pertinent systems reviewed and negative unless documented below Constitutional Constitutional: Reports system reviewed and no additional complaints, except as documented *Cardiovascular Cardiovascular: Reports chest pain and Reports dyspnea *Respiratory Respiratory: Reports system reviewed and no additional complaints, except as documented and Reports dyspnea *Gastrointestinal Gastrointestinal: Reports system reviewed and no additional complaints, except as documented *Neurologic Neurologic: Reports system reviewed and no additional complaints, except as documented and Denies confusion Psychiatric Psychiatric: Reports system reviewed and no additional complaints, except as documented and Denies confusion Exam Data for Last 24 hours Vital signs and Labs for Last 24 Hours: Temp Pulse Resp BP Pulse Ox O2 Del Method 98.4 F 73 21 112/79 97 Room Air 11/04/24 12:00 11/04/24 13:33 11/04/24 13:30 11/04/24 13:30 11/04/24 13:30 11/04/24 12:00 Laboratory Results - last 24 hr 11/04/24 12:01: WBC 11.1 H, RBC 5.13, Hgb 15.0, Hct 44.8, MCV 87.3, MCH 29.2, MCHC 33.5, RDW 12.8, Plt Count 266, MPV 10.4, Neut % (Auto) 66.0, Lymph % (Auto) 24.1, [place] % (Auto) 5.2, Eos % (Auto) 3.7, Baso % (Auto) 0.8, Neut # (Auto) 7.3, Lymph # (Auto) 2.7, [place] # (Auto) 0.6, Eos # (Auto) 0.4, Baso # (Auto) 0.1, Sodium 141, Potassium 3.8, Chloride 103, Carbon Dioxide 26, Anion Gap 15.8 H, BUN 25 H, Creatinine 1.30 H, Estimated Creat Clear 77, Estimated GFR 58 L, Est GFR ( Amer) 71, Glucose 111 H, Calcium 10.1, Magnesium 1.2 L, Total Bilirubin 0.6, AST 27, ALT 24, Alkaline Phosphatase 92, Troponin I < 0.01, NT-Pro-B Natriuret Pep 223 H, Total Protein 7.8, Albumin 4.8, Globulin 3.0, Albumin/Globulin Ratio 1.6, Lipase 87 I & O for Last 24 hours: Intake & Output 11/01/24 11/02/24 11/03/24 11/04/24 23:59 23:59 23:59 23:59 Weight 388 lb Constitutional Constitutional: no acute distress *Routine Respiratory Exam Respiratory: Present CTA bilaterally and symmetric chest movement *Routine Cardiovascular Exam Cardiovascular: Present RRR, Normal S1 and Normal S2 *Routine Abdominal Exam Abdominal: Present soft and normoactive bowel sounds; Absent tenderness *Routine Extremities Exam Extremities: Present full ROM and normal capillary refill; Absent edema *Routine Skin Exam Skin: Present intact, dry and warm Detailed Neck Exam: Thyroids Thyroid: Absent bruit Meds Home Medications and Allergies Home Medications ?Medication ?Instructions ?Recorded ?Confirmed ?Type aripiprazole 10 mg tablet 10 mg PO DAILY 07/25/24 11/04/24 History atorvastatin 20 mg tablet 20 mg PO HS 07/25/24 11/04/24 History bupropion HCl 300 mg 24 hr tablet, 300 mg PO DAILY 07/25/24 11/04/24 History extended release escitalopram oxalate 20 mg tablet 20 mg PO DAILY 07/25/24 11/04/24 History omeprazole 20 mg capsule,delayed 20 mg PO DAILY 07/25/24 11/04/24 History release semaglutide 0.25 mg or 0.5 mg (2 0.5 mg SQ WEEKLY 07/25/24 11/04/24 History mg/3 mL) subcutaneous pen injector (Ozempic) topiramate 50 mg tablet 50 mg PO BID 07/25/24 11/04/24 History trazodone 150 mg tablet 150 mg PO HS 07/25/24 11/04/24 History hydrochlorothiazide 12.5 mg tablet 12.5 mg PO DAILY #30 tabs 11/03/24 11/04/24 Rx lisinopril 20 mg tablet 20 mg PO DAILY #30 tabs 11/03/24 11/04/24 Rx metoprolol succinate 25 mg 25 mg PO DAILY #30 tabs 11/03/24 11/04/24 Rx tablet,extended release 24 hr metformin 500 mg tablet,extended 500 mg PO DAILY 11/04/24 11/04/24 History release 24 hr nitroglycerin 0.4 mg sublingual 0.4 mg sublingual Q5MINP PRN chest 11/04/24 11/04/24 History tablet pain New Prescriptions to Start Prescriptions: Allergies Allergy/AdvReac Type Severity Reaction Status Date / Time No Known Allergies Allergy Verified 11/03/24 09:32 Assessment and Plan *Assessment and plan (1) Unstable angina: Status: Acute Category: Medical Code(s): I20.0 - Unstable angina (2) Abnormal cardiovascular stress test: Status: Acute Category: Medical Code(s): R94.39 - Abnormal result of other cardiovascular function study (3) Coronary artery disease: Status: Acute Category: Medical Code(s): I25.10 - Atherosclerotic heart disease of [place] coronary artery without angina pectoris Plan Coronary artery disease Unstable angina Abnormal stress test Serial troponins negative EKG negative for STEMI TID present on stress test at 1.44 Patient has ongoing intermittent episodes of chest pain at rest Will proceed with left heart catheterization today. Discussed risk versus benefits with patient he is agreeable to proceed. Echo this month shows a normal ejection fraction 11/04/2024: Will proceed with [facility].
--- NOTE | 2024-11-04 14:34 | HMH.PHAINT1 ---
Pharmacy Intervention Comments: MEDICATION RECONCILIATION COMPLETED ON PATIENT USING EXTERNAL FILL HISTORY FROM PHARMACY AND LIST FROM CARDIOLOGY OFFICE. -AYESHA MAYES, ABRAHAMD
[2024-11-04] MEDS: 0.9 % SODIUM CHLORIDE 500 ML 25 ML IV (15:29)
[2024-11-04] MEDS: HEPARIN 1,000 UNITS/ML 10ML VIAL (CATH LAB) 5000 UNIT IV (15:29)
[2024-11-04] MEDS: NITROGLYCERIN 800MCG/8ML SYR (CATH LAB) 800 MCG IA (15:29)
[2024-11-04] MEDS: LIDOCAINE 1% 10ML MDV 10 ML IJ (15:29)
[2024-11-04] MEDS: HEPARIN 1,000 UNITS/500ML NS (CATH LAB) 3000 UNIT IV (15:30)
[2024-11-04] MEDS: VERAPAMIL 2.5MG/ML 2ML VIAL 2.5 MG IV (15:30)
[2024-11-04] MEDS: FENTANYL 100MCG/2ML VIAL 50 MCG IV (15:44)
[2024-11-04] MEDS: MIDAZOLAM HCL 1MG/ML 5ML VIAL 1 MG IV (15:44)
[2024-11-04] MEDS: IOPAMIDOL-370 (76%);100ML BOTTLE 60 ML IV (15:51)
--- NOTE | 2024-11-04 16:17 | CT_ITS ---
PROCEDURE INFORMATION: Exam: CTA Chest With Contrast Exam date and time: 11/04/2024 4:53 PM Age: 49 years old Clinical indication: Pain; Chest pressure; Prior surgery; Surgery date: Post-operative (0-2 days); Surgery type: Post cath; Additional info: Chest pain, post cath TECHNIQUE: Imaging protocol: Computed tomographic angiography of the chest with contrast. Exam focused on the arteries. 3D rendering (Not supervised by radiologist): MIP and/or 3D reconstructed images were created by the technologist. Radiation optimization: All CT scans at this facility use at least one of these dose optimization techniques: automated exposure control; mA and/or kV adjustment per patient size (includes targeted exams where dose is matched to clinical indication); or iterative reconstruction. Contrast material: ISOVUE 370; Contrast volume: 80 ml; Contrast route: INTRAVENOUS (IV); COMPARISON: CT ANGIO CHEST PE PROTOCOL 07/24/2024 10:10 PM FINDINGS: Pulmonary arteries: The pulmonary arteries are normal in course and caliber. No pulmonary emboli. Aorta: Aorta is normal in course and caliber. No acute pathology in the aorta. Thyroid: The thyroid gland is normal. Trachea: Airways are patent. Lungs: Stable focal area of scarring in the right upper lobe. No consolidations. No concerning lung nodules. Pleural spaces: No pleural effusions or pneumothorax. Heart: No cardiomegaly. Trace and likely physiologic pericardial effusion. Coronary arteries: There is no evidence of atherosclerotic coronary artery calcifications. Mediastinal space: Mediastinum is otherwise unremarkable. Lymph nodes: No concerning adenopathy. Diaphragm: Small hiatal hernia. Kidneys: Residual contrast material in the bilateral renal pelvicaliceal systems. Bones/joints: Stable 2.6 cm lucent lesion with sclerotic borders in the lateral segment of the right 3rd rib without any associated osseous destruction. Etiology is unclear, but the lesion does not appear aggressive. Mild multilevel degenerative changes of the spine. No acutely displaced fractures. No joint dislocation. Soft tissues: No acute soft tissue findings. Other findings: No acute findings in the included upper abdominal organs. IMPRESSION: 1. No pulmonary emboli. 2. No acute thoracic pathology.
[2024-11-04] MEDS: IOPAMIDOL-370 (76%);100ML BOTTLE 70 ML IV (17:05)
[2024-11-04] MEDS: 0.9 % SODIUM CHLORIDE 50 ML VIAL IV (17:05)
--- NOTE | 2024-11-04 18:10 | PC.NURSE ---
pt resting in bed, at bedside, call light in reach, no complaints at this time
--- NOTE | 2024-11-04 19:20 | P.HP_ITS ---
<Statement entered by Lukas Urena MD - 11/09/24 12:16> Personally evaluated patient and agree with the plan of care as outlined by the [facility]. Will start azithromycin to help treat EPEC. History of Present Illness *Admission Date: 11/04/24 *Reason for visit:: Chest pain *History of present illness: Anupam Davis is a 49-year-old male who presented with chest pain and was taken to [facility] with an unremarkable LHC. CTA chest also unremarkable. Admitted for further evaluation management. Cardiology note: Anupam Davis is a 49 year old white male with a significant past medical history for coronary artery disease, hypertension, hyperlipidemia, diabetes mellitus and SETH was sent to ER from cardiology clinic for unstable angina and abnormal stress test. Patient had a Marian SPECT stress test yesterday which showed TID at 1.44 suggested of multivessel coronary artery disease. Patient reports has been having ongoing episodes of intermittent chest pain with activity and rest associated with shortness of breath. EKG today was negative for STEMI. Chest x-ray is negative for acute process. Echo 11/03/2024 shows a grossly normal LV systolic function with no significant valvular stenosis or regurg in the visualized valves. The TV and PV valves are not well-visualized. Creatinine 1.3 today improved from a baseline of 2.4. Serial troponins remain negative. Patient was admitted for unstable angina and to proceed with left heart catheterization today. [facility] Disclaimer: The information contained in this section may have been updated after the patient was seen, as this information can be updated by other users. Medical History (Updated 11/04/24 @ 14:36 by Cassidy Pal APRN) Coronary artery calcification seen on CT scan SOB (shortness of breath) GERD (gastroesophageal reflux disease) SETH (obstructive sleep apnea) DM type 2 (diabetes mellitus, type 2) HLD (hyperlipidemia) HTN (hypertension) Surgical History History of right knee joint replacement Family History Other AAA (abdominal aortic aneurysm) Diabetes Hypertension Social History Smoking Status: Former smoker alcohol intake: former current occupational status: employed Travel in the last 8 weeks?: None Other Medical History Have you received the Flu Vaccine for this season: No Have you received the Pneumonia Vaccine: No Review of Systems *Neurologic Neurologic: Reports system reviewed and no additional complaints, except as documented and Denies confusion Psychiatric Psychiatric: Denies confusion Meds Home Medications and Allergies Home Medications ?Medication ?Instructions ?Recorded ?Confirmed ?Type aripiprazole 10 mg tablet 10 mg PO DAILY 07/25/2410/11 History atorvastatin 20 mg tablet 20 mg PO HS 07/25/24 5 History bupropion HCl 300 mg 24 hr tablet, 300 mg PO DAILY 11/04/24 History extended release escitalopram oxalate 20 mg tablet 20 mg PO DAILY 07/2511/04/24 History omeprazole 20 mg capsule,delayed 20 mg PO DAILY 11/04/24 History release semaglutide 0.25 mg or 0.5 mg (2 0.5 mg SQ WEEKLY 07/1011/04/24 History mg/3 mL) subcutaneous pen injector ([email or web address]) topiramate 50 mg tablet 50 mg PO BID 07/25/24 History trazodone 150 mg tablet 150 mg PO HS 07/25/24 History hydrochlorothiazide 12.5 mg tablet 12.5 mg PO DAILY #3 0 tabs 11/03/24 11/04/24 Rx Held on 11/05/24. Instructions: Resume on 11/12/24. Blood pressure stable without this medication. Follow-up with your PCP/cardiology within 1 week to discuss restarting this medication. lisinopril 20 mg tablet 20 mg PO DAILY #30 tabs 10/1111/04/24 Rx Held on 11/05/24. Instructions: Resume on 11/12/24. Blood pressure stable without this medication. Follow-up with your PCP/cardiology within 1 week to discuss restarting this medication. metoprolol succinate 25 mg 25 mg PO DAILY #30 tabs 11/04/24 Rx tablet,extended release 24 hr Held on 11/05/24. Instructions: Resume on 11/12/24. Blood pressure stable without this medication. Follow-up with your PCP/cardiology within 1 week to discuss restarting this medication. metformin 500 mg tablet,extended 500 mg PO DAILY 11/0411/04/24 History release 24 hr nitroglycerin 0.4 mg sublingual 0.4 mg sublingual Q5MI [employer] PRN chest 11/04/24 11/04/24 History tablet pain New Prescriptions to Start Prescriptions: Allergies Allergy/AdvReac Type Severity Reaction Status Date / Time No Known Allergies Allergy Verified 11/03/24 09:32 Exam Data for Last 24 hours Vital signs and Labs for Last 24 Hours: Temp Pulse Resp BP Pulse Ox O2 Del Method 97.5 F L 73 20 107/75 L 96 Room Air 11/04/24 18:35 11/04/24 18:35 11/04/24 18:35 11/04/24 18:35 11/04/24 18:35 11/04/24 18:35 Laboratory Results - last 24 hr 11/04/24 12:01: WBC 11.1 H, RBC 5.13, Hgb 15.0, Hct 44.8, MCV 87.3, MCH 29.2, MCHC 33.5, RDW 12.8, Plt Count 266, MPV 10.4, Neut % (Auto) 66.0, Lymph % (Auto) 24.1, [place] % (Auto) 5.2, Eos % (Auto) 3.7, Baso % (Auto) 0.8, Neut # (Auto) 7.3, Lymph # (Auto) 2.7, [place] # (Auto) 0.6, Eos # (Auto) 0.4, Baso # (Auto) 0.1, Sodium 141, Potassium 3.8, Chloride 103, Carbon Dioxide 26, Anion Gap 15.8 H, BUN 25 H, Creatinine 1.30 H, Estimated Creat Clear 77, Estimated GFR 58 L, Est GFR ( Amer) 71, Glucose 111 H, Calcium 10.1, Magnesium 1.2 L, Total Bilirubin 0.6, AST 27, ALT 24, Alkaline Phosphatase 92, Troponin I < 0.01, NT-Pro-B Natriuret Pep 223 H, Total Protein 7.8, Albumin 4.8, Globulin 3.0, Albumin/Globulin Ratio 1.6, Lipase 87 I & O for Last 24 hours: Intake & Output 11/01/24 11/02/24 11/03/24 11/04/24 23:59 23:59 23:59 23:59 Intake Total 540 / 540 Output Total 0 / 0 Balance 540 / 540 Weight 175.994 kg Constitutional Constitutional: no acute distress and obese *Routine HEENT Exam Head: Present normocephalic Eye: Present EOMI and PERRL ENT: Present mucous membranes moist *Routine Neck Exam Neck: Present supple; Absent lymphadenopathy *Routine Respiratory Exam Respiratory: Present CTA bilaterally *Routine Cardiovascular Exam Cardiovascular: Present RRR *Routine Abdominal Exam Abdominal: Present soft and normoactive bowel sounds; Absent tenderness *Routine Rectal Exam Rectal:: deferred *Routine Genitalia Exam Genitalia:: deferred *Routine Extremities Exam Extremities: Absent cyanosis, clubbing or edema *Routine Skin Exam Skin: Present warm; Absent rash *Routine Neurological Exam Neurological: Present alert and oriented X3 Assessment and Plan *Assessment and plan (1) Chest pain at rest: Status: Acute Category: Medical Code(s): R07.9 - Chest pain, unspecified Plan Anupam Davis is a 49-year-old male who presented with chest pain and was taken to [facility] with an unremarkable LHC. CTA chest also unremarkable. Admitted for further evaluation management. #Chest pain ? Recently had an abnormal outpatient stress test. Cardiology consulted, unremarkable C 11/04/2024. CTA chest also unremarkable. ? Outpatient ECHO technically difficult study but did not show gross abnormalities. ? Follow-up A1c, lipid panel, TSH. ? Patient states been feeling dizzy over the past month, and intermittent left- sided chest pain over the past few days. Would benefit from event monitor. ? Monitor overnight for arrhythmias, chest pain. Discharge in the morning if stable. #Hypertension ? Hold BP meds at this time as patient is currently having soft blood pressures from sedation. #Type 2 diabetes ? LDSSI, ACHS glucose checks. #Anxiety/depression ? Continue home bupropion, escitalopram, topiramate, trazodone. #GERD ? Continue home PPI. Full code DVT prophylaxis: Lovenox 40 mg
[2024-11-04 23:29] LABS: Thyroid Stimulating Hormone 1.04 uIU/mL (0.465-4.68)
[2024-11-05] VITALS (7 sets, daily range): BP systolic 85–106; BP diastolic 54–71; PULSE 60–71; RESP 14–17; TEMP 36.4–36.8; O2SAT 96–99; BMI 52.0
--- NOTE | 2024-11-05 05:46 | PC.NURSE ---
patient rested throughout the night. Patient had no complaints this shift. Vital signs stable. Will continue to monitor.
[2024-11-05 05:54] LABS: Hematocrit 41.5 % (42.0-52.0); Hemoglobin 13.8 g/dL (14.1-18.0); Immature Granulocytes % 0.3 %; Mean Corpuscular HGB Conc 33.3 g/dL (31.8-35.4); Mean Corpuscular Hemoglobin 29.6 pg (27.0-31.2); Mean Corpuscular Volume 88.9 fl (80-94); Nucleated Red Blood Cells % 0 %; Platelet Count 213 K/mm3 (142-424); Red Blood Count 4.67 M/mm3 (4.60-6.20); Red Cell Distribution Width-SD 42.3 fL; White Blood Count 7.9 K/mm3 (4.8-10.8)
[2024-11-05 05:57] LABS: Albumin Level 4.2 g/dl (3.5-5.0); Chloride 106 mmol/L (98-107); Potassium 3.5 mmoL/L (3.5-5.1); Sodium 140 mmol/L (136-145)
[2024-11-05 05:59] LABS: Alanine Aminotransferase 22 U/L (12-78); Aspartate Amino Transferase 24 U/L (17-59); Blood Urea Nitrogen 26 mg/dl (9-20); Creatinine Clearance Estimated 75 mL/min (50-200); Creatinine,Serum 1.30 mg/dl (0.66-1.25); Estimated Glomerular Filt Rate 58 ml/min (>60); GFR (African American) 71 ML/MIN (>60)
[2024-11-05 06:00] LABS: Albumin/Globulin Ratio 1.6 (1.1-1.8); Alkaline Phosphatase 86 U/L (38-126); Anion Gap 12.5 mEq/L (5-15); Bilirubin,Total 0.4 mg/dl (0.2-1.3); Calcium 9.5 mg/dl (8.4-10.2); Carbon Dioxide 25 mmol/L (22.0-30.0); Globulin 2.7 g/dL (1.3-3.2); Glucose 123 mg/dl (74-100); Magnesium 1.7 mg/dl (1.6-2.3); Total Protein,Serum 6.9 g/dl (6.3-8.2)
[2024-11-05] MEDS: 0.9 % SODIUM CHLORIDE 1000ML 1,000 ML 500 ML IV (08:33)
[2024-11-05] MEDS: ESCITALOPRAM 20MG TABLET 20 MG PO (08:35)
[2024-11-05] MEDS: TOPIRAMATE 100MG TABLET 50 MG PO (08:35)
--- NOTE | 2024-11-05 09:57 | PC.NURSE ---
Per Md verbal order he wanted me to do ortho BP on pt. Laying 85/54 Sitting 102/69 Standing 106/71 will monitor
--- NOTE | 2024-11-05 10:08 | EXP.CARD.PN ---
Subjective Subjective Date: 11/05/24 Time: 08:00 Principal diagnosis: Unstable angina Interval history: Patient is s/p [facility], see report below: [facility] 11/04/2024: IMPRESSION Mild nonflow limiting coronary artery disease Hyperdynamic ventricle Mildly elevated LVEDP PLAN 1. Evaluation of noncardiac symptoms 2. Treatment of hyperdynamic ventricle 3. Consider sleep study 4. Consider CTA PE gram to evaluate for possible pulmonary embolism Exam Data for Last 24 hours Vital signs and Labs for Last 24 Hours: Temp Pulse Resp BP Pulse Ox O2 Del Method 97.5 F L 71 14 98/66 L 99 Room Air 11/05/24 07:42 11/05/24 07:42 11/05/24 07:42 11/05/24 07:42 11/05/24 07:42 11/05/24 08:12 Laboratory Results - last 24 hr 11/04/24 12:01: WBC 11.1 H, RBC 5.13, Hgb 15.0, Hct 44.8, MCV 87.3, MCH 29.2, MCHC 33.5, RDW 12.8, Plt Count 266, MPV 10.4, Neut % (Auto) 66.0, Lymph % (Auto) 24.1, [place] % (Auto) 5.2, Eos % (Auto) 3.7, Baso % (Auto) 0.8, Neut # (Auto) 7.3, Lymph # (Auto) 2.7, [place] # (Auto) 0.6, Eos # (Auto) 0.4, Baso # (Auto) 0.1, Sodium 141, Potassium 3.8, Chloride 103, Carbon Dioxide 26, Anion Gap 15.8 H, BUN 25 H, Creatinine 1.30 H, Estimated Creat Clear 77, Estimated GFR 58 L, Est GFR ( Amer) 71, Glucose 111 H, Calcium 10.1, Magnesium 1.2 L, Total Bilirubin 0.6, AST 27, ALT 24, Alkaline Phosphatase 92, Troponin I < 0.01, NT-Pro-B Natriuret Pep 223 H, Total Protein 7.8, Albumin 4.8, Globulin 3.0, Albumin/Globulin Ratio 1.6, Lipase 87 11/04/24 21:01: TSH 1.04 11/05/24 05:21: WBC 7.9 D, RBC 4.67, Hgb 13.8 L, Hct 41.5 L, MCV 88.9, MCH 29.6, MCHC 33.3, RDW 13.0, Plt Count 213, MPV 10.4, Neut % (Auto) 59.7, Lymph % (Auto) 26.9, [place] % (Auto) 7.0, Eos % (Auto) 5.2, Baso % (Auto) 0.9, Neut # (Auto) 4.7, Lymph # (Auto) 2.1, [place] # (Auto) 0.6, Eos # (Auto) 0.4, Baso # (Auto) 0.1, Sodium 140, Potassium 3.5, Chloride 106, Carbon Dioxide 25, Anion Gap 12.5, BUN 26 H, Creatinine 1.30 H, Estimated Creat Clear 75, Estimated GFR 58 L, Est GFR ( Amer) 71, Glucose 123 H, Calcium 9.5, Magnesium 1.7 D, Total Bilirubin 0.4, AST 24, ALT 22, Alkaline Phosphatase 86, Total Protein 6.9, Albumin 4.2 D, Globulin 2.7, Albumin/Globulin Ratio 1.6 I & O for Last 24 hours: Intake & Output 11/02/24 11/03/24 11/04/24 11/05/24 23:59 23:59 23:59 23:59 Intake Total 540 / 540 360 / 360 Output Total 0 / 0 0 / 0 Balance 540 / 540 360 / 360 Weight 388 lb 392 lb 11.2 oz Constitutional Constitutional: no acute distress *Routine Respiratory Exam Respiratory: Present CTA bilaterally and symmetric chest movement *Routine Cardiovascular Exam Cardiovascular: Present RRR, Normal S1 and Normal S2 *Routine Abdominal Exam Abdominal: Present soft and normoactive bowel sounds; Absent tenderness *Routine Extremities Exam Extremities: Present full ROM and normal capillary refill; Absent edema *Routine Skin Exam Skin: Present intact, dry and warm Detailed Neck Exam: Thyroids Thyroid: Absent bruit Progress Note: A&P Assessment and plan (1) Unstable angina: Status: Acute (2) Abnormal cardiovascular stress test: Status: Acute (3) Coronary artery disease: Status: Acute Assessment and Plan Assessment and Plan for All Diagnoses:: Coronary artery disease Unstable angina Abnormal stress test [facility] 11/04/2024: Mild nonflow limiting coronary artery disease, hyperdynamic ventricle, mildly elevated LVEDP Echo this month shows a normal ejection fraction CTA negative for PE CV summary 11/05/2024: Patient CV stable for discharge home. Please have patient follow-up in cardiology clinic in 1 week for reevaluation. Please continue below listed medications. Cardiac meds: Aspirin 81 mg p.o. daily Atorvastatin 20 mg p.o. daily Hydrochlorothiazide 25 mg p.o. daily Lisinopril 10 mg p.o. daily Toprol 25 mg p.o. daily
--- NOTE | 2024-11-05 10:30 | EXP.DC.SUM ---
General Admission date:: 11/04/24 HPI HPI HPI: Anupam Davis is a 49-year-old male who presented with chest pain and was taken to [facility] with an unremarkable LHC. CTA chest also unremarkable. Admitted for further evaluation management. Cardiology note: Anupam Davis is a 49 year old white male with a significant past medical history for coronary artery disease, hypertension, hyperlipidemia, diabetes mellitus and SETH was sent to ER from cardiology clinic for unstable angina and abnormal stress test. Patient had a Marian SPECT stress test yesterday which showed TID at 1.44 suggested of multivessel coronary artery disease. Patient reports has been having ongoing episodes of intermittent chest pain with activity and rest associated with shortness of breath. EKG today was negative for STEMI. Chest x-ray is negative for acute process. Echo 11/03/2024 shows a grossly normal LV systolic function with no significant valvular stenosis or regurg in the visualized valves. The TV and PV valves are not well-visualized. Creatinine 1.3 today improved from a baseline of 2.4. Serial troponins remain negative. Patient was admitted for unstable angina and to proceed with left heart catheterization today. Hospital Course Hospital Course Hospital Course: Anupam Davis is a 49-year-old male who presented with chest pain and was taken to [facility] with an unremarkable LHC. CTA chest also unremarkable. Admitted for further evaluation management. #Chest pain #Low blood pressures ? Recently had an abnormal outpatient stress test. Cardiology consulted, unremarkable LHC 11/04/2024. CTA chest also unremarkable. ? Outpatient ECHO 11/03/2024 technically difficult study but did not show gross abnormalities. ? Patient states been feeling dizzy over the past month, and intermittent left-sided chest pain over the past few days. ? On further evaluation, patient's blood pressures have been low and often in the systolic 90s. He also endorses the same at home. He states he has lost about 60 pounds over the past few months with Ozempic, likely contributing to improvement in blood pressures but without titrating blood pressure medications. Low blood pressures may be contributing to symptoms., Including chest pain ? Currently takes hydrochlorothiazide, lisinopril, metoprolol succinate. Advised to hold these until follow-up with cardiology within 2 weeks. Counseled to keep a blood pressure log. #Hypertension ? Hold BP meds at this time as patient is currently having soft blood pressures from sedation. #Obstructive sleep apnea ? Continue home CPAP. #Type 2 diabetes ? Continue home metformin, Ozempic. #Anxiety/depression ? Continue home bupropion, escitalopram, topiramate, trazodone. #GERD ? Continue home PPI. Exam Data for Last 24 hours Vital signs and Labs for Last 24 Hours: Temp Pulse Resp BP Pulse Ox O2 Del Method 97.5 F L 71 14 106/71 L 99 Room Air 11/05/24 07:42 11/05/24 07:42 11/05/24 07:42 11/05/24 10:17 11/05/24 07:42 11/05/24 08:12 Laboratory Results - last 24 hr 11/04/24 12:01: WBC 11.1 H, RBC 5.13, Hgb 15.0, Hct 44.8, MCV 87.3, MCH 29.2, MCHC 33.5, RDW 12.8, Plt Count 266, MPV 10.4, Neut % (Auto) 66.0, Lymph % (Auto) 24.1, [place] % (Auto) 5.2, Eos % (Auto) 3.7, Baso % (Auto) 0.8, Neut # (Auto) 7.3, Lymph # (Auto) 2.7, [place] # (Auto) 0.6, Eos # (Auto) 0.4, Baso # (Auto) 0.1, Sodium 141, Potassium 3.8, Chloride 103, Carbon Dioxide 26, Anion Gap 15.8 H, BUN 25 H, Creatinine 1.30 H, Estimated Creat Clear 77, Estimated GFR 58 L, Est GFR ( Amer) 71, Glucose 111 H, Calcium 10.1, Magnesium 1.2 L, Total Bilirubin 0.6, AST 27, ALT 24, Alkaline Phosphatase 92, Troponin I < 0.01, NT-Pro-B Natriuret Pep 223 H, Total Protein 7.8, Albumin 4.8, Globulin 3.0, Albumin/Globulin Ratio 1.6, Lipase 87 11/04/24 21:01: TSH 1.04 11/05/24 05:21: WBC 7.9 D, RBC 4.67, Hgb 13.8 L, Hct 41.5 L, MCV 88.9, MCH 29.6, MCHC 33.3, RDW 13.0, Plt Count 213, MPV 10.4, Neut % (Auto) 59.7, Lymph % (Auto) 26.9, [place] % (Auto) 7.0, Eos % (Auto) 5.2, Baso % (Auto) 0.9, Neut # (Auto) 4.7, Lymph # (Auto) 2.1, [place] # (Auto) 0.6, Eos # (Auto) 0.4, Baso # (Auto) 0.1, Sodium 140, Potassium 3.5, Chloride 106, Carbon Dioxide 25, Anion Gap 12.5, BUN 26 H, Creatinine 1.30 H, Estimated Creat Clear 75, Estimated GFR 58 L, Est GFR ( Amer) 71, Glucose 123 H, Calcium 9.5, Magnesium 1.7 D, Total Bilirubin 0.4, AST 24, ALT 22, Alkaline Phosphatase 86, Total Protein 6.9, Albumin 4.2 D, Globulin 2.7, Albumin/Globulin Ratio 1.6 I & O for Last 24 hours: Intake & Output 11/02/24 11/03/24 11/04/24 11/05/24 23:59 23:59 23:59 23:59 Intake Total 540 / 540 360 / 360 Output Total 0 / 0 0 / 0 Balance 540 / 540 360 / 360 Weight 175.994 kg 178.126 kg Constitutional Constitutional: no acute distress and obese *Routine HEENT Exam Head: Present normocephalic Eye: Present EOMI and PERRL ENT: Present mucous membranes moist *Routine Neck Exam Neck: Present supple; Absent lymphadenopathy *Routine Respiratory Exam Respiratory: Present CTA bilaterally *Routine Cardiovascular Exam Cardiovascular: Present RRR *Routine Abdominal Exam Abdominal: Present soft and normoactive bowel sounds; Absent tenderness *Routine Extremities Exam Extremities: Absent cyanosis, clubbing or edema *Routine Skin Exam Skin: Present warm; Absent rash *Routine Neurological Exam Neurological: Present alert and oriented X3 Results Data Completed and Pending Labs on day of discharge: Labs from last 24 hours 11/05/24 11/04/24 11/04/24 05:21 21:01 12:01 WBC 7.9 D 11.1 H RBC 4.67 5.13 Hgb 13.8 L 15.0 Hct 41.5 L 44.8 MCV 88.9 87.3 MCH 29.6 29.2 MCHC 33.3 33.5 RDW 13.0 12.8 Plt Count 213 266 MPV 10.4 10.4 Neut % (Auto) 59.7 66.0 Lymph % (Auto) 26.9 24.1 [place] % (Auto) 7.0 5.2 Eos % (Auto) 5.2 3.7 Baso % (Auto) 0.9 0.8 Neut # (Auto) 4.7 7.3 Lymph # (Auto) 2.1 2.7 [place] # (Auto) 0.6 0.6 Eos # (Auto) 0.4 0.4 Baso # (Auto) 0.1 0.1 Sodium 140 141 Potassium 3.5 3.8 Chloride 106 103 Carbon Dioxide 25 26 Anion Gap 12.5 15.8 H BUN 26 H 25 H Creatinine 1.30 H 1.30 H Estimated Creat Clear 75 77 Estimated GFR 58 L 58 L Est GFR ( Amer) 71 71 Glucose 123 H 111 H Calcium 9.5 10.1 Magnesium 1.7 D 1.2 L Total Bilirubin 0.4 0.6 AST 24 27 ALT 22 24 Alkaline Phosphatase 86 92 Troponin I < 0.01 NT-Pro-B Natriuret Pep 223 H Total Protein 6.9 7.8 Albumin 4.2 D 4.8 Globulin 2.7 3.0 Albumin/Globulin Ratio 1.6 1.6 Lipase 87 TSH 1.04 DS: Diagnosis Discharge Diagnosis (1) Unstable angina: Status: Acute Code(s): I20.0 - Unstable angina (2) Abnormal cardiovascular stress test: Status: Acute Code(s): R94.39 - Abnormal result of other cardiovascular function study (3) Coronary artery disease: Status: Acute Code(s): I25.10 - Atherosclerotic heart disease of [place] coronary artery without angina pectoris Meds Home Medications and Allergies Home Medications ?Medication ?Instructions ?Recorded ?Confirmed ?Type aripiprazole 10 mg tablet 10 mg PO DAILY 07/25/24 11/04/24 History atorvastatin 20 mg tablet 20 mg PO HS 07/25/24 11/04/24 History bupropion HCl 300 mg 24 hr tablet, 300 mg PO DAILY 07/25/24 11/04/24 History extended release escitalopram oxalate 20 mg tablet 20 mg PO DAILY 07/25/24 11/04/24 History omeprazole 20 mg capsule,delayed 20 mg PO DAILY 07/25/24 11/04/24 History release semaglutide 0.25 mg or 0.5 mg (2 0.5 mg SQ WEEKLY 07/25/24 11/04/24 History mg/3 mL) subcutaneous pen injector (Ozempic) topiramate 50 mg tablet 50 mg PO BID 07/25/24 11/04/24 History trazodone 150 mg tablet 150 mg PO HS 07/25/24 11/04/24 History hydrochlorothiazide 12.5 mg tablet 12.5 mg PO DAILY #30 tabs 11/03/24 11/04/24 Rx Held on 11/05/24. Instructions: Resume on 11/12/24. Blood pressure stable without this medication. Follow-up with your PCP/cardiology within 1 week to discuss restarting this medication. lisinopril 20 mg tablet 20 mg PO DAILY #30 tabs 11/03/24 11/04/24 Rx Held on 11/05/24. Instructions: Resume on 11/12/24. Blood pressure stable without this medication. Follow-up with your PCP/cardiology within 1 week to discuss restarting this medication. metoprolol succinate 25 mg 25 mg PO DAILY #30 tabs 11/03/24 11/04/24 Rx tablet,extended release 24 hr Held on 11/05/24. Instructions: Resume on 11/12/24. Blood pressure stable without this medication. Follow-up with your PCP/cardiology within 1 week to discuss restarting this medication. metformin 500 mg tablet,extended 500 mg PO DAILY 11/04/24 11/04/24 History release 24 hr nitroglycerin 0.4 mg sublingual 0.4 mg sublingual Q5MINP PRN chest 11/04/24 11/04/24 History tablet pain New Prescriptions to Start Prescriptions: Allergies Allergy/AdvReac Type Severity Reaction Status Date / Time No Known Allergies Allergy Verified 11/03/24 09:32 Discharge Plan Disposition Patient Disposition: Home, Self-Care Condition: Fair Follow up Plan Follow up with: Kaylene Lombardo APRN [Primary Care Provider, Medical] - 11/12/24 8:00 am Prescriptions/Medication Reconciliation: Continued metformin 500 mg tablet extended release 24 hr 500 mg PO DAILY nitroglycerin 0.4 mg tablet, sublingual 0.4 mg sublingual Q5MINP PRN (Reason: chest pain) Rx Instructions: do not exceed 3 doses per episode atorvastatin 20 mg tablet 20 mg PO HS trazodone 150 mg tablet 150 mg PO HS omeprazole 20 mg capsule,delayed release(DR/EC) 20 mg PO DAILY escitalopram oxalate 20 mg tablet 20 mg PO DAILY aripiprazole 10 mg tablet 10 mg PO DAILY bupropion HCl 300 mg tablet extended release 24 hr 300 mg PO DAILY topiramate 50 mg tablet 50 mg PO BID Ozempic 0.25 mg or 0.5 mg (2 mg/3 mL) pen injector 0.5 mg SQ WEEKLY Held hydrochlorothiazide 12.5 mg tablet 12.5 mg PO DAILY Qty: 30 2RF Hold Instructions: Resume on 11/12/24. Blood pressure stable without this medication. Follow-up with your PCP/cardiology within 1 week to discuss restarting this medication. lisinopril 20 mg tablet 20 mg PO DAILY Qty: 30 2RF Hold Instructions: Resume on 11/12/24. Blood pressure stable without this medication. Follow-up with your PCP/cardiology within 1 week to discuss restarting this medication. metoprolol succinate 25 mg tablet extended release 24 hr 25 mg PO DAILY Qty: 30 2RF Hold Instructions: Resume on 11/12/24. Blood pressure stable without this medication. Follow-up with your PCP/cardiology within 1 week to discuss restarting this medication. Problem Reconciliation Problems Reviewed?: Yes Patient Discharge Instructions Print Language: German Providers Primary Care Provider: Kaylene Lombardo Admit Provider: Luaks Urena Attending Provider: Lukas Urena
--- NOTE | 2024-11-06 11:37 | SW/DCPLANNER ---
Spoke with patient on the phone. Patient stated that he is doing well. Patient stated that he is aware of his upcoming appointment with his primary care provider. Patient stated that he was not prescribed any new medicine. Patient stated that he has no concerns or questions at this time. Abdi Chow
== END 2024-11-05 11:12 | disposition home or self-care (01) ==
LOC: ER 14:11 → 2ND 14:22
PROVIDERS: Internal Medicine; Physician Assistant; Admitting Provider Student in an Organized Health Care Education/Training Program; Emergency Provider Student in an Organized Health Care Education/Training Program; PCP Nurse Practitioner Family; Visit Provider Student in an Organized Health Care Education/Training Program
PROC: 4A023N7 Measurement of Cardiac Sampling and Pressure, Left Heart, Percutaneous Approach (ICD-10-PCS; CPT 93452; principal; 2024-11-04 14:30)
DX: I25.110 Atherosclerotic heart disease of native coronary artery with unstable angina pectoris (principal); R94.39 Abnormal result of other cardiovascular function study; R06.02 Shortness of breath; R42 Dizziness and giddiness; I10 Essential (primary) hypertension; E78.5 Hyperlipidemia, unspecified; K21.9 Gastro-esophageal reflux disease without esophagitis; G47.33 Obstructive sleep apnea (adult) (pediatric); F41.9 Anxiety disorder, unspecified; R79.89 Other specified abnormal findings of blood chemistry; D72.829 Elevated white blood cell count, unspecified; F32.A Depression, unspecified; Z79.899 Other long term (current) drug therapy; Z79.85 Long-term (current) use of injectable non-insulin antidiabetic drugs; Z79.84 Long term (current) use of oral hypoglycemic drugs; Z82.49 Family history of ischemic heart disease and other diseases of the circulatory system; Z87.891 Personal history of nicotine dependence; Z96.651 Presence of right artificial knee joint
CPT/HCPCS: 36415; 71045; 71275; 80053; 83690; 83735; 83880; 84443; 84484; 85025; 93005; 93458; 96361; 96365; 96375; 99152; 99284; C1725; C1760; C1769; G0378; J1200; J1644; J2003; J2250; J2270; J2405; J3010; J3475; J7030; J7040; Q9967

== ENCOUNTER 2024-11-18 09:26 | Outpatient (CLI) | payer OTHER, SELFPAY ==
--- NOTE | 2024-11-18 | US_ITS ---
FINAL REPORT TECHNIQUE: Sonographic images of the abdomen were obtained in all four quadrants. CLINICAL HISTORY: .CHEST PAIN FINDINGS: LIVER: Fatty liver. No focal hepatic lesion or intrahepatic biliary dilatation. Portal vein is patent. GALLBLADDER: The gallbladder is contracted. There may be small gallstones. The common duct measures 3 mm. This is within normal limits for age. PANCREAS: Obscured RIGHT KIDNEY: 11.8 cm. No hydronephrosis, mass or stone. LEFT KIDNEY: 12.1 cm. No hydronephrosis, mass or stone. SPLEEN: 12.5 cm. No focal splenic lesion. AORTA/IVC: Aorta not visualized. Visualized IVC within normal limits. OTHER: No ascites. IMPRESSION: Contracted gallbladder with possible small gallstones. Fatty liver. Reviewed, Interpreted and Dictated by Nupur Craig MD Transcribed by Sindi Chan Authenticated and [facility]
--- OUTSIDE RECORDS SUMMARY | 2024-11-18 09:31 | XMS_ITS | Clinical Summary ---
Author Organization [facility] yste Address [address] [place] [address] Care Team Providers Care Occupational Therapy Technician Name Role Phone Unavailable Primary Care Provider [...] Description 02/04/2025 3:00 PM EST Office Visit [facility] [address] [facility] [address] [place] [address] Jerry Suárez MD [address] [place] [address] Health Maintenance Due Date Last Done Comments ANNUAL PHYSICAL 1974 HEPATITIS C SCREENING 1974 TDAP/TD VACCINES (1 - Tdap) 1993 COLOGUARD 05/21/2019 COLON CANCER SCREENING 5 YEAR SIGMOIDOSCOPY 05/21/2019 COLONOSCOPY 05/21/2019 COLORECTAL CANCER SCREENING 05/21/2019 CT COLONOGRAPHY 05/21/2019 FECAL OCCULT BLOOD TEST 05/21/2019 FIT Testing (1 year) 05/21/2019 Pneumococcal Vaccine 50+ (1 of 1 - PCV) 2024 ZOSTER VACCINE (1 of 2) 2024 COVID-19 Vaccine (1 - 2023- season) 2024 INFLUENZA VACCINE 12/10/2024 Insurance [employer] [facility]
== END 2024-11-18 23:59 | disposition home or self-care (01) ==
LOC: RAD 09:27
PROVIDERS: PCP Physician Assistant Surgical; Visit Provider Nurse Practitioner Family
DX: K76.0 Fatty (change of) liver, not elsewhere classified (principal); R93.2 Abnormal findings on diagnostic imaging of liver and biliary tract; R07.9 Chest pain, unspecified
CPT/HCPCS: 76700